=== PATIENT | male | born 1995 | race Caucasian/White ===

== ENCOUNTER 2023-02-17 13:24 | Emergency (ER) | payer OTHER, SELFPAY ==
--- NOTE | ~2023-02-17 | XR_ITS ---
EXAMINATION: XR CHEST CLINICAL INFORMATION: Lightheadedness COMPARISON: None available. TECHNIQUE: 2 views of the chest were obtained. FINDINGS: Hyperinflated lungs with a 8 to 9 mm nodule right lower lobe suspected. No acute pneumonic process seen. The heart size and pulmonary vascularity is normal. No gross bony abnormality seen. There is mild dextroscoliosis. No aggressive lytic or sclerotic process seen. XR/XR chest 2V IMPRESSION: 1. 8 to 9 mm nodule right lower lobe. Recommend CT chest exam. 2. No acute pneumonic process seen.
--- NOTE | ~2023-02-17 | CT_ITS ---
EXAMINATION: CT ABDOMEN AND PELVIS WITH CONTRAST CLINICAL INFORMATION: Night sweats. Weight loss. COMPARISON: None available. TECHNIQUE: Multidetector volumetric images were obtained from the superior aspect of the liver through the pubic symphysis following administration 85 mL of Omnipaque 350 intravenous contrast. Sagittal and coronal reformatted images were obtained on the technologist's workstation. Oral contrast: Yes This CT examination was performed using dose optimization techniques as appropriate, variously including the following: *Automated exposure control *Adjustment of mA and/or kV according to patient size (this includes techniques or standardized protocols for targeted exams where dose is matched to indication/reason for exam; i.e. extremities or head) *Use of iterative reconstruction technique DLP: 390 mGy-cm FINDINGS: LUNG BASES: The visualized lung bases are unremarkable. LIVER, GALLBLADDER, AND BILIARY TREE: The liver is normal in size, shape, and attenuation. No focal hepatic lesion or biliary ductal dilatation is present. The gallbladder is contracted. PANCREAS: Unremarkable. SPLEEN: Unremarkable. ADRENAL GLANDS: Unremarkable. KIDNEYS AND URETERS: The kidneys are normal in size, shape, and attenuation. Small 2 mm nonobstructing stone in the mid right kidney. BLADDER: Unremarkable. GASTROINTESTINAL TRACT: There is a slightly dilated fluid-filled loop of proximal small bowel with question focal wall thickening in the left mid abdomen for example axial image 40 series 9 and coronal reconstructed image 37. The small and large bowel are otherwise unremarkable. The appendix is unremarkable. The stomach is filled with food. No ascites. ABDOMINAL WALL: No significant hernia is appreciated. LYMPH NODES: Shotty small bowel mesentery lymphadenopathy. VASCULAR: Unremarkable. PELVIC VISCERA: Unremarkable. OSSEOUS STRUCTURES: Small nonspecific sclerotic lesions in the right iliac bone and L5 vertebrae. These may represent bone islands. CT/CT abdomen pelvis w IV con IMPRESSION: Question abnormal loop of proximal small bowel in left mid abdomen. Shotty small bowel mesentery lymphadenopathy. This could be better evaluated small bowel follow-through or CT or MR enterography exam. Small nonobstructing right renal stone. Fleischner guidelines were followed.
--- NOTE | ~2023-02-17 | CT_ITS ---
EXAMINATION: CT ANGIOGRAM OF THE CHEST WITH AND WITHOUT CONTRAST (CT PULMONARY ANGIOGRAM FOR PE) CLINICAL INFORMATION: Reason for Exam R sided pain, near syncope COMPARISON: Chest x-ray from earlier the same day. TECHNIQUE: Prior to contrast administration, noncontrast localization images were obtained. Subsequently, multidetector volumetric imaging was performed from the thoracic inlet to below the diaphragms following the administration of 85 mL Omnipaque 350 intravenous contrast. No contrast reaction reported Sagittal, coronal, and MIP oblique sagittal reformatted images were obtained on the CT workstation, uploaded to PACS, and reviewed. This CT examination was performed using dose optimization techniques as appropriate, variously including the following: *Automated exposure control *Adjustment of mA and/or kV according to patient size (this includes techniques or standardized protocols for targeted exams where dose is matched to indication/reason for exam; i.e. extremities or head) *Use of iterative reconstruction technique Total exam dose-length product 267 mGy-cm FINDINGS: QUALITY OF STUDY/CONTRAST BOLUS: Satisfactory. PULMONARY ARTERIES: No pulmonary emboli. THORACIC AORTA: No aneurysm. LUNG: No focal consolidation, nodules or masses. PLEURA: No pleural effusion or pneumothorax. MEDIASTINUM: Normal heart size. No pericardial effusion. No hilar or mediastinal lymphadenopathy. No evidence of septal bowing or right heart strain. CORONARY ARTERY CALCIFICATION: None visualized on this study. CHEST WALL/AXILLA: No axillary or internal mammary lymphadenopathy. OSSEOUS STRUCTURES: No acute or suspicious osseous abnormality. UPPER ABDOMEN: Unremarkable. No reflux of contrast into the hepatic veins to suggest elevated right heart pressures. CT/CT angio chest PE protocol IMPRESSION: No pulmonary embolism. VTE: negative
--- NOTE | 2023-02-17 13:42 | ED_ITS ---
HPI - General Adult General Chief complaint: General Medical Stated complaint: Lightheaded R Side Pain Etc Time Seen by Provider: 02/17/23 14:58 Source: patient Mode of arrival: ambulatory Limitations: no limitations History of Present Illness HPI narrative: 27 yo male with no PMH he is a smoker notes unexplained weight loss 20+ lbs in 3 months time, fatigue, night sweats. 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 He states since last night body aches, he was so weak he was dizzy and thinks he blacked out. He is eating but has nausea and early satiety. He notes he feels full a lot. He uses the bathroom a lot and at times has seen blood in his stool. No known fam hx of UC or Crohns. Today at work his vision went out again - no trauma he could hear people and he has this unexplained pain in RUQ area that bothers him at times. He denies travel, cough, exposures, IVDA, prison use, mcfp time. MD complaint: weight loss Onset (ago): month(s) (3) Location: abdomen Radiation: non-radiation Severity: mild Quality: aching Pain Consistency: intermittent Relieving factors: none Exacerbating factors: eating Associated symptoms: loss of appetite, malaise, syncope and weakness Treatments prior to arrival: none Related Data Previous Rx's Medication Instructions Recorded ondansetron 4 mg disintegrating 4 mg PO Q8H PRN nausea and 02/17/23 tablet vomiting #20 tabs prednisone 20 mg tablet 40 mg (2 x 20 mg) PO DAILY 5 days 02/17/23 #10 tabs Allergies Allergy/AdvReac Type Severity Reaction Status Date / Time alprazolam [From Xanax] Allergy Rash Verified 02/17/23 13:42 Review of Systems 2 Review of Systems: Constitutional : No Fever, No Chills, pos Fatigue, pos weight loss, pos night sweats ENT/Mouth : No sore throat, No Rhinorrhea Eyes: No Eye Pain, No Swelling, No Redness Cardiovascular : No Chest Pain, No SOB, No Dyspnea on Exertion Respiratory : No Cough, No Sputum Gastrointestinal : No Nausea, No Vomiting, No Diarrhea, No abdominal Pain Genitourinary : No Dysuria, No Urinary Frequency, No Hematuria, Musculoskeletal : No joint pain, No Myalgias, No Joint Swelling Skin : No Skin Lesions, No rash Neuro : No Weakness, No Numbness, No Dizziness, no Headache Psych : No Anxiety/Panic, No Depression Heme/Lymph: No Bruising, No Bleeding,No Lymphadenopathy Endocrine : No Polyuria, No Polydipsia All other systems reviewed and are negative [facility] Past Medical History Attestation statement: The following information was validated with the patient. Source: old records reviewed Medical History No pertinent past medical history Social History Social History (Updated 02/17/23 @ 15:52 by Pema Garcia DO) Patient Tobacco Use Status: Current everyday Tobacco user Advance Directives: No Advance Directives Information Provided: Yes Physical Exam ED Vital Signs: Vital Signs - 24 hr 02/17/23 13:43 Temperature 98.6 F Pulse Rate 71 Respiratory Rate 18 Blood Pressure 116/47 L Pulse Oximetry 99 Oxygen Delivery Method Room Air BMI result Body Mass Index 22.6 Appearance: Alert. Oriented X3. No acute distress. Eating food in exam room. Eyes: Pupils equal, round and reactive to light. ENT: Pharynx normal. Neck: Normal inspection. Neck supple. CVS: Normal heart rate and rhythm. Pulses normal. Respiratory: No respiratory distress. Breath sounds normal. Abdomen: Soft and non-tender. Skin: Skin warm and dry. pale skin color. Normal skin turgor. Extremities: No lower extremity edema. No calf ttp Neuro: Oriented X 3. No motor deficit. No sensory deficit. Course Course Course Narrative: RME performed by Peggy August PA-C. Patient is a 27 year old assigned male at presenting to the emergency department with lightheadedness and a syncopal episode at work. Labs and swabs ordered. Patient placed back in the waiting room pending room availability and results. Reevaluation(s) Reevaluation #1: stable for DC at this time eating no signs of SBO Medications Administered Discontinued Medications Generic Name Dose Route Start Last Admin Trade Name Freq PRN Reason Stop Dose Admin Sodium Chloride 1,000 mls @ 999 mls/hr 02/17/23 15:30 02/17/23 17:05 Ns IV 02/17/23 16:30 Infused .Q1H1M CHRISTIANA Infusion Iohexol 85 ml 02/17/23 17:15 02/17/23 17:16 Iohexol 350 Mg/Ml 100 Ml Infus..Btl IV 02/17/23 17:16 85 ml ONCE ONE Administration Medical Decision Making Medical Decision Making [facility] Narrative: 27 yo male with weight loss, night sweats now with weakness and syncope/near syncope - symptoms started 3 months ago now progressive - at this time concern for malignancy will obtain CT scan of chest and abdomen his CBC does not show any signs of leukemia. He denies risk factors such as IVDA, prison use, m[facility]p time for infectious issues like TB. He has not traveled. Will obtain labs, CT scans, EKG, hydrate. Differential Diagnosis Differential Diagnoses: The differential diagnosis associated with the presentation includes dehydration, malignancy Admission/Observation Consideration of admission/observation: Escalation of care including admission/observation considered can follow up with GI as outpatient given symptoms will start on steroid dwayne clinically not consistent with SBO Lab Data [facility] Lab Attestation statement: I reviewed the patient's lab results. 02/17/23 14:13 02/17/23 14:13 Labs: Lab Results 02/17/23 Range/Units 14:13 WBC 10.7 (4.8-10.8) X10*3/uL RBC 4.61 (4.60-5.80) X10*6/uL Hgb 14.1 (14.0-18.0) g/dl Hct 41.0 L (42.0-52.0) % MCV 88.9 (80.0-98.0) fL MCH 30.6 (27.0-33.0) pg MCHC 34.4 (31.0-36.0) g/dl RDW 13.2 (11.0-16.0) % Plt Count 229 (160-400) X10*3/uL MPV 9.9 (9.4-12.4) fL Immature Gran % (Auto) 0.4 (0.0-0.4) % Neut % (Auto) 75.8 H (45-73) % Lymph % (Auto) 18.7 L (20-40) % [place] % (Auto) 4.0 (2-11) % Eos % (Auto) 0.7 (0-4) % Baso % (Auto) 0.4 (0-2) % Lymph # (Auto) 2.0 (1.2-4.9) X10*3/uL [place] # (Auto) 0.4 (0.1-1.2) X10*3/uL Eos # (Auto) 0.1 (0.0-0.4) X10*3/uL Baso # (Auto) 0.0 (0.0-0.2) X10*3/uL Abs Immat Gran (auto) 0.04 H (0.00-0.03) X10*3/uL Absolute Neuts (auto) 8.1 (2.0-8.3) x10*3/uL Absolute Nucleated RBC 0.000 (0.0-0.012) X10*3/uL Nucleated RBC % (auto) 0.0 (0.0-0.2) /100WBC Sodium 140 (135-145) mmol/L Potassium 4.3 (3.3-5.1) mmol/L Chloride 106 (96-108) mmol/L Carbon Dioxide 28 (22-29) mmol/L Anion Gap 10 L (12-20) BUN 14 (9-16) mg/dL Creatinine 1.07 (0.5-1.4) mg/dL Estim Creat Clear Calc 102.8 Estimated GFR > 60 Random Glucose 108 (60-115) mg/dL Calcium 9.8 (8.4-10.2) mg/dL Magnesium 2.4 (1.6-2.6) mg/dL Total Bilirubin 0.5 (0.0-1.0) mg/dL AST 12 (5-37) U/L ALT 18 (0-40) U/L Alkaline Phosphatase 68 (39-117) U/L Troponin I High Sens < 2.7 (<3.5-35.0) ng/L Total Protein 7.7 (6.5-8.0) g/dL Albumin 4.6 (3.5-5.0) g/dL TSH 0.70 (0.32-4.0) uIU/mL Urine Color Yellow Urine Appearance Cloudy Urine pH 7.5 (5.0-9.0) Ur Specific [place] 1.015 (1.005-1.025) Urine Protein Negative (Neg-Trace) mg/dL Urine Glucose (UA) Negative (Negative) mg/dL Urine Ketones Negative (Negative) mg/dL Urine Blood Negative (Negative) Urine Nitrite Negative (Negative) Ur Leukocyte Esterase Negative (Negative) Influenza Type A (PCR) NEGATIVE (Negative) Influenza Type B (PCR) NEGATIVE (Negative) RSV RNA Qual (PCR) NEGATIVE (Negative) SARS-CoV-2 RNA (RT-PCR) NEGATIVE (Negative) Independent Interpretation I performed an independent interpretation of an: EKG, Plain X-Ray (lung nodule) and CT Scan Interpretation: Rate: 70 Rhythm: NSR [place]: normal Normal P waves. Normal DEANNE. Normal QRS complex. ST T wave : normal no TANYA qTC: normal prior studies: no acute ischemia The study has been interpreted contemporaneously by me. . Radiology Impression Discussion of test interpretation with radiology: I have reviewed the radiologist's reading. Independent Historian Clinical information obtained from an independent historian. History obtained from or confirmed by: Spouse Prescription Management I considered prescription management with: Other Discharge Plan Discharge Clinical Impression: Near syncope, Unexplained weight loss Diarrhea Qualifiers: Diarrhea type: unspecified type Qualified Code(s): R19.7 - Diarrhea, unspecified Patient Disposition: Home, Self-Care Instructions: Acute Diarrhea (ED), Near Syncope (ED) Additional Instructions: return for worsening symptoms, fevers, increased blood in stool, inability to eat or drink or any other concerns. I would talk to your doctor Monday and get referral to GI for colonoscopy please do not wait. normal heart tests, negative blood clot, negative covid,flu,rsv Prescriptions: New prednisone 20 mg tablet 40 mg PO DAILY 5 Days Qty: 10 0RF ondansetron 4 mg tablet,disintegrating 4 mg PO Q8H PRN (Reason: nausea and vomiting) Qty: 20 0RF Referrals: Allan Mcgee MD [Physician] - (next week call to schedule appointment) Stand Alone Forms: Work/School Release
[2023-02-17 13:43] VITALS: BP 116/47; PULSE 71; RESP 18; TEMP 37; O2SAT 99; BMI 22.6
--- NOTE | 2023-02-17 13:43 | ECG_ITS ---
Test Reason : lighthead Blood Pressure : / mmHG Vent. Rate : 070 BPM Atrial Rate : 070 BPM P-R Int : 122 ms QRS Dur : 078 ms QT Int : 390 ms P-R-T Axes : 028 062 061 degrees QTc Int : 421 ms Normal sinus rhythm Normal ECG No previous ECGs available Referred By: Peggy August Electronically Signed By:Telly Roman
[2023-02-17 14:19] LABS: MANUAL DIFF FLAG NO
[2023-02-17 14:20] LABS: Basophils Percent Auto 0.4 % (0-2); Eosinophils Absolute Auto 0.1 X10*3/uL (0.0-0.4); Eosinophils Percent Auto 0.7 % (0-4); Hemoglobin 14.1 g/dl (14.0-18.0); Imm Gran Abs Auto 0.04 X10*3/uL (0.00-0.03); Imm Gran Pct Auto 0.4 % (0.0-0.4); Lymphocytes Percent Auto 18.7 % (20-40); Mean Corpuscular HGB Conc 34.4 g/dl (31.0-36.0); Mean Corpuscular Hemoglobin 30.6 pg (27.0-33.0); Mean Corpuscular Volume 88.9 fL (80.0-98.0); Mean Platelet Volume 9.9 fL (9.4-12.4); Monocytes Absolute Auto 0.4 X10*3/uL (0.1-1.2); Neutrophils Absolute Auto 8.1 x10*3/uL (2.0-8.3); Neutrophils Percent Auto 75.8 % (45-73); Platelet Count 229 X10*3/uL (160-400); Red Blood Count 4.61 X10*6/uL (4.60-5.80); Red Cell Distribution Width 13.2 % (11.0-16.0); White Blood Count 10.7 X10*3/uL (4.8-10.8)
[2023-02-17 14:22] LABS: Appearance Urine Cloudy; Color Urine Yellow; Glucose Urine UA Negative (Negative); Leukocyte Esterase Urine Negative (Negative); Nitrite Urine Negative (Negative); PH 7.5 (5.0-9.0); Specific Gravity - Urine 1.015 (1.005-1.025); Urine Blood Negative (Negative); Urine Ketones Negative (Negative); Urine Protein Negative (Neg-Trace)
[2023-02-17 14:35] LABS: Alanine Aminotransferase 18 U/L (0-40); Albumin Level 4.6 g/dL (3.5-5.0); Alkaline Phosphatase 68 U/L (39-117); Anion Gap 10 (12-20); Aspartate Amino Transferase 12 U/L (5-37); Bilirubin Total 0.5 mg/dL (0.0-1.0); Blood Urea Nitrogen 14 mg/dL (9-16); Calcium 9.8 mg/dL (8.4-10.2); Carbon Dioxide 28 mmol/L (22-29); Chloride 106 mmol/L (96-108); Creatinine Clr Calc Pharmacy 102.8; Estimated Glomerular Filt Rate > 60; Glucose Random 108 mg/dL (60-115); Magnesium 2.4 mg/dL (1.6-2.6); Potassium 4.3 mmol/L (3.3-5.1); Sodium 140 mmol/L (135-145); Total Protein 7.7 g/dL (6.5-8.0)
[2023-02-17 14:42] LABS: Troponin-I High Sensitivity < 2.7 ng/L (<3.5-35.0)
[2023-02-17 15:27] LABS: Influenza A PCR NEGATIVE (Negative); Influenza B PCR NEGATIVE (Negative); Resp Syncy Virus RNA Qual PCR NEGATIVE (Negative); SARS COV2 PCR INHOUSE NEGATIVE (Negative)
[2023-02-17] MEDS: 0.9 % Sodium Chloride 1,000 ML 999 ML IV (16:04)
[2023-02-17] MEDS: iohexoL 350 MG/ML 100 ML INFUS..BTL 85 ML IV (17:16)
--- NOTE | 2023-02-17 19:06 | PC.NURSE ---
care assumed of patient at this time.
== END 2023-02-17 19:23 | disposition home or self-care (01) ==
PROVIDERS: Physician Assistant Medical; Emergency Provider Emergency Medicine
DX: R55 Syncope and collapse (principal); R10.2 Pelvic and perineal pain; R61 Generalized hyperhidrosis; R10.11 Right upper quadrant pain; R11.2 Nausea with vomiting, unspecified; Z20.822 Contact with and (suspected) exposure to COVID-19; Z20.828 Contact with and (suspected) exposure to other viral communicable diseases; Z79.899 Other long term (current) drug therapy
CPT/HCPCS: 0241U; 71046; 71275; 74177; 80053; 81003; 83735; 84443; 84484; 85025; 93005; 96360; 99284; Q9967

== ENCOUNTER → 2023-02-17 13:43 | Outpatient (BNV) | payer OTHER, SELFPAY | PROVIDERS: Emergency Provider Emergency Medicine; Visit Provider Internal Medicine Cardiovascular Disease | DX: R42 Dizziness and giddiness (principal) | CPT/HCPCS: 93010 ==

== ENCOUNTER 2023-05-13 11:17 | Emergency (ER) | payer OTHER, SELFPAY ==
--- NOTE | 2023-05-13 11:34 | ED.GENADULT ---
HPI - General Adult General Chief complaint: Upper Respiratory Symptoms Stated complaint: Headache, body aches, fever Time Seen by Provider: 05/13/23 12:37 Source: patient Mode of arrival: ambulatory Limitations: no limitations History of Present Illness HPI narrative: Patient is a 27-year-old male presenting to the emergency department with complaint of headache, body aches, fever/chills x 2 days. States both daughters are sick with the flu. Denies chest pain, palpitations, dyspnea. Denies abdominal pain, nausea, vomiting, diarrhea. MD complaint: body aches, fever Onset (ago): day(s) Quality: aching Pain Consistency: constant Associated symptoms: fever/chills and headaches Treatments prior to arrival: none Related Data Previous Rx's Medication Instructions Recorded ondansetron 4 mg disintegrating 4 mg PO Q8H PRN nausea and 02/17/23 tablet vomiting #20 tabs prednisone 20 mg tablet 40 mg (2 x 20 mg) PO DAILY 5 days 02/17/23 #10 tabs oseltamivir 75 mg capsule 75 mg PO BID 5 days #10 caps 05/13/23 Allergies Allergy/AdvReac Type Severity Reaction Status Date / Time alprazolam [From Xanax] Allergy Rash Verified 05/13/23 11:37 Review of Systems Review of Systems: As per HPI. Yes all other systems are reviewed and are negative Constitutional: Constitutional: Reports as per HPI [facility] Past Medical History Medical History No pertinent past medical history Social History Social History (Updated 02/17/23 @ 15:52 by Pema Garcia DO) Patient Tobacco Use Status: Current everyday Tobacco user Physical Exam ED Vital Signs: Vital Signs - 24 hr 05/13/23 11:37 Temperature 98.0 F Pulse Rate 81 Respiratory Rate 16 Blood Pressure 110/48 L Pulse Oximetry 98 Oxygen Delivery Method Room Air BMI result Body Mass Index 25.8 Vital signs have been reviewed and appear to be correct. Blood pressure normal. Heart rate normal. Respiratory rate normal. Temperature normal. Oxygen saturation normal. Const General: cooperative, healthy appearing and no acute distress Orientation/consciousness: oriented to person, oriented to place, oriented to time and patient oriented x3 Limitations: no limitations HENMT Head: Yes normocephalic and Yes atraumatic Ears: external ears normal General nose exam: Normal external nose present Face and sinus: Yes face symmetric Mouth: oropharynx normal and moist mucous membranes Throat: Yes uvula midline Eyes Pupils: Equal, round and reactive pupils present Neck Neck: Yes normal visual inspection and Yes supple Resp Effort & Inspection: normal respiratory effort and able to speak in complete sentences Auscultation: clear to auscultation bilaterally Cardio Rate: regular rate Rhythm: regular rhythm Heart sounds: S1 normal heart sound present and S2 normal heart sound present GI Palpation (GI): Soft to palpation and nontender Auscultation: normoactive bowel sounds General: Yes no CVA tenderness Back/Spine/Pelvis Back: no CVA tenderness Skin General skin exam: elasticity normal and turgor normal Neuro General: oriented to person, oriented to place, oriented to time, patient oriented x3, moves all extremities, no focal motor deficits and CN's II-XI intact bilaterally Cranial nerves: Yes Equal, round and reactive pupils present Cognition (Neuro): normal cognition Extrem General: Yes full ROM, Yes no pedal edema and Yes no calf tenderness Psych Mental Status: mental status grossly normal Affect: normal affect Thought process: Normal thought process present Medical Decision Making Medical Decision Making [facility] Narrative: Patient is a 27-year-old male presenting to the emergency department with complaint of headache, body aches, fever/chills x 2 days. On exam patient is awake, A+Ox3, VS WNL, afebrile, normal neurological exam without focal deficits, physical exam findings as above. Given reported symptoms and physical exam findings, initial differential includes viral illness, covid, flu, rsv. Swab positive for influenza A, patient updated on results. Discussed treatment with Tamiflu with patient, which he is agreeable to, prescription sent. Patient denies any history of renal issues. Return precautions discussed, instructed patient to follow-up with primary care provider. Patient verbalized understanding of and agreement with plan Differential Diagnosis Differential Diagnoses: The differential diagnosis associated with the presentation includes As per MDM. Lab Data [facility] Lab Attestation statement: I reviewed the patient's lab results. As per MDM. Labs: Lab Results 05/13/23 05/13/23 Range/Units 11:49 11:50 Influenza Type A (PCR) POSITIVE A (Negative) Influenza Type B (PCR) NEGATIVE (Negative) RSV RNA Qual (PCR) NEGATIVE (Negative) SARS-CoV-2 RNA (RT-PCR) NEGATIVE (Negative) S. pyogenes GrpA ADITYA Negative (Negative) External Record Review External record reviewed: Inpatient record, Office record and Outpatient record Prescription Management I considered prescription management with: Antiviral Discharge Plan Discharge Clinical Impression: Influenza Patient Disposition: Home, Self-Care Instructions: Influenza (DC), Flu Shot (Vaccine) for Adults (ED) Additional Instructions: You were evaluated in the emergency department today for headaches, body aches, fever. Your flu test was positive. You should isolate at home for another 4 days and continue to wear mask or symptomatic after that. You are being treatment with Tamiflu which can decrease the length and severity of your symptoms, but can cause nausea and vomiting. Your symptoms should resolve over time with rest and fluids. You can take 650 mg Tylenol or 600 mg ibuprofen every 6 hours as needed for fever or pain. Please follow-up with your primary care provider for any ongoing symptoms. Return to the emergency department if you develop worsening pain, fever not controlled with Tylenol and ibuprofen, chest pain, dizziness or lightheadedness, or any other concerning symptoms. Prescriptions: New oseltamivir 75 mg capsule 75 mg PO BID 5 Days Qty: 10 0RF No Action prednisone 20 mg tablet 40 mg PO DAILY 5 Days Qty: 10 0RF ondansetron 4 mg tablet,disintegrating 4 mg PO Q8H PRN (Reason: nausea and vomiting) Qty: 20 0RF Stand Alone Forms: Work/School Release
[2023-05-13 11:37] VITALS: BP 110/48; PULSE 81; RESP 16; TEMP 36.7; O2SAT 98; BMI 25.8
[2023-05-13 12:18] LABS: IDNOW Serial# 6674DD1D; Strep A Nucleic Acid Negative (Negative)
[2023-05-13 12:34] LABS: Influenza A PCR POSITIVE (Negative); Influenza B PCR NEGATIVE (Negative); Resp Syncy Virus RNA Qual PCR NEGATIVE (Negative); SARS COV2 PCR INHOUSE NEGATIVE (Negative)
== END 2023-05-13 12:47 | disposition home or self-care (01) ==
LOC: HO.ED 12:45
PROVIDERS: Registered Nurse Emergency; Emergency Provider Student in an Organized Health Care Education/Training Program
DX: J10.1 Influenza due to other identified influenza virus with other respiratory manifestations (principal); R51.9 Headache, unspecified; R50.9 Fever, unspecified
CPT/HCPCS: 0241U; 87651; 99281; 99283

== ENCOUNTER 2023-05-13 22:26 | Emergency (ER) | payer OTHER, SELFPAY ==
[2023-05-13 22:29] VITALS: BP 110/63; PULSE 85; RESP 20; TEMP 37.7; O2SAT 99; BMI 21.4
[2023-05-13 22:49] LABS: MANUAL DIFF FLAG NO
[2023-05-13 22:50] LABS: Basophils Absolute Auto 0.1 X10*3/uL (0.0-0.2); Basophils Percent Auto 0.7 % (0-2); Eosinophils Percent Auto 0.1 % (0-4); Hemoglobin 13.8 g/dl (14.0-18.0); Imm Gran Abs Auto 0.02 X10*3/uL (0.00-0.03); Imm Gran Pct Auto 0.3 % (0.0-0.4); Lymphocytes Absolute Auto 0.8 X10*3/uL (1.2-4.9); Mean Corpuscular HGB Conc 35.4 g/dl (31.0-36.0); Mean Corpuscular Hemoglobin 30.9 pg (27.0-33.0); Mean Corpuscular Volume 87.4 fL (80.0-98.0); Monocytes Absolute Auto 0.9 X10*3/uL (0.1-1.2); Monocytes Percent Auto 12.5 % (2-11); Neutrophils Absolute Auto 5.3 x10*3/uL (2.0-8.3); Neutrophils Percent Auto 75.4 % (45-73); Platelet Count 177 X10*3/uL (160-400); Red Blood Count 4.46 X10*6/uL (4.60-5.80); Red Cell Distribution Width 13.2 % (11.0-16.0); White Blood Count 7.1 X10*3/uL (4.8-10.8)
[2023-05-13 23:02] LABS: Alanine Aminotransferase 19 U/L (0-40); Albumin Level 4.5 g/dL (3.5-5.0); Alkaline Phosphatase 65 U/L (39-117); Anion Gap 12 (12-20); Aspartate Amino Transferase 16 U/L (5-37); Bilirubin Total 0.4 mg/dL (0.0-1.0); Blood Urea Nitrogen 12 mg/dL (9-16); Calcium 9.6 mg/dL (8.4-10.2); Carbon Dioxide 27 mmol/L (22-29); Chloride 103 mmol/L (96-108); Estimated Glomerular Filt Rate > 60; Glucose Random 117 mg/dL (60-115); Potassium 3.5 mmol/L (3.3-5.1); Sodium 138 mmol/L (135-145); Total Protein 7.5 g/dL (6.5-8.0)
[2023-05-13 23:17] LABS: Appearance Urine Clear; Color Urine Yellow; Glucose Urine UA Negative (Negative); Leukocyte Esterase Urine Negative (Negative); Nitrite Urine Negative (Negative); UMIC TRIGGER UACC YES; Urine Blood Moderate (2+) (Negative); Urine Ketones Trace mg/dL (Negative); Urine Protein Trace mg/dL (Neg-Trace)
[2023-05-13 23:21] LABS: Ethanol < 10 mg/dL
[2023-05-13 23:22] LABS: Bacteria Urine None Seen (None Seen); Hyaline Casts Urine 0-2 /LPF (0-2); RBC Urine >20 /HPF (0-2); Squamous Epithelial Cell Urine 0-2 /HPF (0-2); WBC Urine 0-5 /HPF (0-5)
[2023-05-13 23:25] LABS: Amphetamine Screen Urine Not Detected (Not Detect); Barbiturates, Urine Not Detected (Not Detect); Benzodiazepines Screen Urine Not Detected (Not Detect); Cannabinoid Screen Urine POSITIVE (Not Detect); Cocaine Screen Urine Not Detected (Not Detect); Fentanyl, urine POSITIVE (Not Detect); Opiate Screen Urine Not Detected (Not Detect); Phencyclidine Screen Urine Not Detected (Not Detect)
--- NOTE | 2023-05-13 23:46 | ED_ITS ---
HPI - Psych General Chief Complaint: Psychiatric Symptoms Stated Complaint: SI Time Seen by Provider: 05/13/23 23:17 Source: patient Mode of arrival: ambulatory Limitations: no limitations History of Present Illness HPI Narrative: 27-year-old male came in for evaluation of SI. Patient was seen earlier in the emergency department and diagnosed with influenza knee positive, patient return for depression feeling, SI with plan to crash his car into something or overdose on pills, patient admit to use street drugs for the past 8 months used 1 pill of Percocet before coming to the hospital. Patient stated that life is stressful with problem with his significant other and also financial problem. Patient also is seeking help of detox from Percocet. Related Data Home Medications Medication Instructions Recorded Confirmed clonidine HCl 0.1 mg tablet 0.1 mg PO BEDTIME 05/14/23 05/14/23 Previous Rx's Medication Instructions Recorded ondansetron 4 mg disintegrating 4 mg PO Q8H PRN nausea and 02/17/23 tablet vomiting #20 tabs prednisone 20 mg tablet 40 mg (2 x 20 mg) PO DAILY 5 days 02/17/23 #10 tabs oseltamivir 75 mg capsule 75 mg PO BID 5 days #10 caps 05/13/23 Allergies Allergy/AdvReac Type Severity Reaction Status Date / Time alprazolam [From Xanax] Allergy Rash Verified 05/13/23 22:29 Review of Systems 2 Review of Systems: All other systems are reviewed and are negative Constitutional: Reports as per HPI and Reports no additional constitutional complaints Eyes: Reports as per HPI and Reports no additional eye complaints Reports system reviewed and no additional complaints, except as documented Cardiovascular: Reports as per HPI and Reports no additional cardiovascular complaints Respiratory: Reports as per HPI and Reports no additional respiratory complaints Gastrointestinal: Reports as per HPI and Reports no additional gastrointestinal complaints Genitourinary: Reports no additional female genitourinary complaints Musculoskeletal: Reports no additional musculoskeletal complaints Skin/Breast: Reports system reviewed and no additional complaints, except as docu Psychiatric: Reports no additional psychiatric complaints Endocrine: Reports no additional endocrine complaints Hematologic/Lymphatic: Reports no additional hematologic/lymphatic complaints Allergic/Immunologic: Reports no additional allergic/immunologic complaints Reports system reviewed and no additional complaints, except as documented and Reports Abnormal speech present [facility] Past Medical History Medical History No pertinent past medical history Social History Social History Patient Tobacco Use Status: Current everyday Tobacco user Smoked in Last 30 Days: No Use of substances other than those prescribed or required for medical reasons: Yes Substance Use Type: Opiates and Painkillers Advance Directives: No Advance Directives Information Provided: No Physical Exam 2 Vital Signs: Vital Signs: Last Vital Signs Temp 99.8 F 05/13/23 22:29 Pulse 85 05/13/23 22:29 Resp 20 05/13/23 22:29 BP 110/63 05/13/23 22:29 Pulse Ox 99 05/13/23 22:29 O2 Del Method Room Air 05/13/23 22:29 BMI result Body Mass Index 21.4 Vital signs have been reviewed and appear to be correct. Blood pressure elevated. Heart rate normal. Respiratory rate normal. Temperature normal. Oxygen saturation normal. Appearance: Alert. Oriented X3. No acute distress. Head: Normal external exam. Normocephalic. Atraumatic. No Bowman signs noted. No raccoon eyes noted Eyes: PERRLA. EOMI. Conjunctiva and sclera normal. Eyelids normal. ENT: TM's Normal. Pharynx normal. Uvula midline. Moist mucous membranes. No trismus noted. No drooling noted. No muffled voice noted. Neck: Normal inspection. Neck supple. FROM. No adenopathy. Thyroid Normal. No meningeal signs. No neck mass noted. CVS: Normal heart rate and rhythm. Heart sound normal. No murmurs noted. Pulses normal throughout. Respiratory: No respiratory distress. Painless inspiration. Breath sounds normal. No wheezes/rales/rhonchi noted. Chest nontender. No accessory muscle usage noted or decreased air movement noted. Abdomen: Soft and nontender. Bowel sounds normal in all 4 quadrants. No distention noted. No organomegaly noted. No visible injury noted. Back: No CVA tenderness. Full range of motion noted. Skin: Skin warm and dry. Normal skin color. Normal skin turgor. No rashes/lesions/lacerations noted. Extremities: No lower extremity edema. Extremities exhibit normal range of motion. Extremities nontender. Neuro: Oriented X 3. Cranial nerve exam: II-XII are grossly intact No motor deficit. No sensory deficit. Reflexes normal. Patient Orientation: Person, Place, Time and Situation, okay hygiene and grooming. Fair eye contact, attentive, no tics or tremors. Level of Consciousness: Awake, Appropriate and Alert Patient Behavior: Appropriate, Guarded, Cooperative and Anxious Mood Description: Constricted, Blunted and Apprehensive Affect Description: Constricted, Blunted and Apprehensive Patient Cognition Impaired: No Ability to Follow Directions: Excellent Speech Pattern: Clear, Appropriate and Spontaneous Speech, nonpressured, spontaneous with regular rate and rhythm, normal volume and prosody. No dysarthria. Memory Description: Intact, Immediate Intact and Short Term Intact Hallucinations: None Delusions: Not Present Thought Process: Intact Thought Content: positive for Intact, positive for Logical, admit to SI with plan of crashing his car or overdose on street drugs. denies Homicidal Ideation. Depressive Symptoms: Not present. Judgement and Insight: Limited but adequate. Course Reevaluation(s) Reevaluation #1: Here for depression/SI and substance abuse will start physician observation await for care team evaluation and disposition. Time: 23:50 Reevaluation #2: Seen and evaluated by care team the plan is bed search. Time: 03:22 Medications Administered Generic Name Dose Route Start Last Admin Trade Name Freq PRN Reason Stop Dose Admin Clonidine HCl 0.1 mg 05/14/23 01:15 05/14/23 01:20 Clonidine Hcl 0.1 Mg Tablet PO 0.1 mg BEDTIME CHRISTIANA Administration Protocol Medical Decision Making Differential Diagnosis Differential Diagnoses: The differential diagnosis associated with the presentation includes (Depression, SI, substance abuse, UTI, electrolyte abnormality, severe anemia, medical clearance.) Admission/Observation Consideration of admission/observation: Escalation of care including admission/observation considered Lab Data [facility] Lab Attestation statement: I reviewed the patient's lab results. 05/13/23 22:42 05/13/23 22:42 Labs: Lab Results 05/13/23 05/13/23 Range/Units 22:42 23:06 WBC 7.1 (4.8-10.8) X10*3/uL RBC 4.46 L (4.60-5.80) X10*6/uL Hgb 13.8 L (14.0-18.0) g/dl Hct 39.0 L (42.0-52.0) % MCV 87.4 (80.0-98.0) fL MCH 30.9 (27.0-33.0) pg MCHC 35.4 (31.0-36.0) g/dl RDW 13.2 (11.0-16.0) % Plt Count 177 (160-400) X10*3/uL MPV 10.0 (9.4-12.4) fL Immature Gran % (Auto) 0.3 (0.0-0.4) % Neut % (Auto) 75.4 H (45-73) % Lymph % (Auto) 11.0 L (20-40) % [place] % (Auto) 12.5 H (2-11) % Eos % (Auto) 0.1 (0-4) % Baso % (Auto) 0.7 (0-2) % Lymph # (Auto) 0.8 L (1.2-4.9) X10*3/uL [place] # (Auto) 0.9 (0.1-1.2) X10*3/uL Eos # (Auto) 0.0 (0.0-0.4) X10*3/uL Baso # (Auto) 0.1 (0.0-0.2) X10*3/uL Abs Immat Gran (auto) 0.02 (0.00-0.03) X10*3/uL Absolute Neuts (auto) 5.3 (2.0-8.3) x10*3/uL Absolute Nucleated RBC 0.000 (0.0-0.012) X10*3/uL Nucleated RBC % (auto) 0.0 (0.0-0.2) /100WBC Sodium 138 (135-145) mmol/L Potassium 3.5 (3.3-5.1) mmol/L Chloride 103 (96-108) mmol/L Carbon Dioxide 27 (22-29) mmol/L Anion Gap 12 (12-20) BUN 12 (9-16) mg/dL Creatinine 1.01 (0.5-1.4) mg/dL Estim Creat Clear Calc 106.0 Estimated GFR > 60 Random Glucose 117 H (60-115) mg/dL Calcium 9.6 (8.4-10.2) mg/dL Total Bilirubin 0.4 (0.0-1.0) mg/dL AST 16 (5-37) U/L ALT 19 (0-40) U/L Alkaline Phosphatase 65 (39-117) U/L Total Protein 7.5 (6.5-8.0) g/dL Albumin 4.5 (3.5-5.0) g/dL Urine Color Yellow Urine Appearance Clear Urine pH 6.0 (5.0-9.0) Ur Specific [place] 1.020 (1.005-1.025) Urine Protein Trace (Neg-Trace) mg/dL Urine Glucose (UA) Negative (Negative) mg/dL Urine Ketones Trace (Negative) mg/dL Urine Blood Moderate (2+) H (Negative) Urine Nitrite Negative (Negative) Ur Leukocyte Esterase Negative (Negative) Urine RBC >20 H (0-2) /HPF Urine WBC 0-5 (0-5) /HPF Ur Squamous Epith Cells 0-2 (0-2) /HPF Urine Bacteria None Seen (None Seen) Hyaline Casts 0-2 (0-2) /LPF Urine Opiates Screen Not Detected (Not Detect) Urine Fentanyl Screen POSITIVE H (Not Detect) Ur Barbiturates Screen Not Detected (Not Detect) Ur Phencyclidine Scrn Not Detected (Not Detect) Ur Amphetamines Screen Not Detected (Not Detect) U Benzodiazepines Scrn Not Detected (Not Detect) Urine Cocaine Screen Not Detected (Not Detect) U Marijuana (THC) Screen POSITIVE H (Not Detect) Ethyl Alcohol < 10 mg/dL Chronic Conditions Patient?s care impacted by: Other (Substance abuse.) Discharge Plan Discharge Clinical Impression: Suicidal ideation, Depression Patient Disposition: Still a Patient Prescriptions: No Action clonidine HCl 0.1 mg tablet 0.1 mg PO BEDTIME prednisone 20 mg tablet 40 mg PO DAILY 5 Days Qty: 10 0RF ondansetron 4 mg tablet,disintegrating 4 mg PO Q8H PRN (Reason: nausea and vomiting) Qty: 20 0RF oseltamivir 75 mg capsule 75 mg PO BID 5 Days Qty: 10 0RF Interventions: [place]-Suicide Risk Severity Scale Last Done: 05/14/23 00:58
[2023-05-14] MEDS: cloNIDine HCL 0.1 MG TABLET PO ×2 (01:20→20:51)
[2023-05-14 05:57] VITALS: BP 108/61; PULSE 73; RESP 17; TEMP 38; O2SAT 98
--- NOTE | 2023-05-14 06:17 | PC.NURSE ---
Pt arrived from triage. Labs completed in triage. PT changed over, urine obtained, belongings secured by security. PT oriented to the unit. Med rec completed. Pt endoring SI thoughts to crash car. States he recently had argument with girlfriend, and has not been himself lately. states he uses 1 perocet a day and has felt overwhelmed with life- all he is does is work and go home to care for his young children 1 and 5. Girlfriend works overnight. PT states he is interested in detox. Care team eval pending. plan of care ongoing
[2023-05-14] MEDS: Acetaminophen 325 MG TABLET 650 MG PO ×2 (06:35→20:51)
--- NOTE | 2023-05-14 07:30 | PC.NURSE ---
Assumed care of patient at 0650, patient appears to be sleeping, respirations even and unlabored, no apparent distress noted. Patient is flu+. Plan for inpatient bedsearch at this time
--- NOTE | 2023-05-14 12:47 | PC.NURSE ---
Patient spoke with mother on the phone, appeared to be in good mood, smiling occasionally. Pt is now back in his room sleeping, respirations even and unlabored, no apparent distress noted
[2023-05-14 14:44] VITALS: BP 116/69; PULSE 69; RESP 16; TEMP 37; O2SAT 97
[2023-05-14] MEDS: Ibuprofen 600 MG TABLET PO (15:51)
--- NOTE | 2023-05-14 19:19 | PC.NURSE ---
patient appears to remain at rest at present respirations are even and unlabored patient appears in no distress.
[2023-05-14 20:30] VITALS: BP 102/64; PULSE 61; RESP 18; TEMP 36.9; O2SAT 99
[2023-05-14] MEDS: diphenhydrAMINE HCL 25 MG CAPSULE 50 MG PO (20:51)
[2023-05-15] MEDS: LORazepam 1 MG TABLET 2 MG PO (00:29)
--- NOTE | 2023-05-15 03:55 | PC.NURSE ---
patient still appears restless in the bed, client may be having opiate wd sx, asking provider for muscle relaxer to address symptoms.
[2023-05-15] MEDS: Cyclobenzaprine HCl 10 MG TABLET PO (05:09)
[2023-05-15 06:34] VITALS: BP 104/63; PULSE 62; RESP 17; TEMP 36.8; O2SAT 100
--- NOTE | 2023-05-15 07:00 | PC.NURSE ---
Assumed care of patient at 0645, patient appears to be sleeping, respirations even and unlabored, no apparent distress noted. Continue plan of care for Sec 12, inpt bedsearch
[2023-05-15 08:53] LABS: COVID-19 Test Negative (Negative); IDNOW Serial# 152EDE1D
[2023-05-15 08:56] LABS: IDNOW Serial# 08D9AD1C; Influenza A Positive (Negative); Influenza B2 Negative (Negative)
[2023-05-15] MEDS: Nicotine 21 MG PATCH.TD24 TRANSDERMA (10:21)
[2023-05-15 10:25] VITALS: PULSE 74
--- NOTE | 2023-05-15 10:39 | PC.NURSE ---
CARE team met with patient and felt like patient may be withdrawing. This RN completed COWS score (9). Sql Ssis Developer aware
--- NOTE | 2023-05-15 12:11 | HO.ADDICT_ITS ---
History of Present Illness Date of Service: 05/15/2023 Chief Complaint: SI Sources of Information: patient interviewed and chart reviewed HPI Narrative: Patient is a 27 year old male currently in area of ED awaiting placement for worsening depression and suicidal ideation. He reported to team in ED that he has been taking Percocet for some time and has recently been taking pressed pills. Patient seen in ED [facility]-Awake, alert, engaged in interview. He reports he started taking prescribed percocet from a friend approx one year ago. He identified intrusive thoughts, sadness, and inability to stop my mind from thinking so much as the main reason for taking these pills. He reports they worked fast and allowed him to sleep and not have to think. Prior to this last year, he does acknowledge that he used percocet on occasion, but never daily. He states that he had been taking 1 30mg percocet every night before bed, until this summer when his friend, who was providing the medication, was no longer getting prescriptions. He then started to buy percocet from someone else, and on once occasion sounds like he may have experienced what he felt was a near overdose. He saw his PCP and learned about fentanyl and PCP provided him with testing strips. He reports testing his pills and found that they were in fact fentanyl, and he continued to take them. He takes pills by mouth. He has never used IN or IV. He denies any other substance use, aside from marijuana, and does not drink alcohol. Reports going 4 days once with no pressed pills, however did return to using. Unclear family history of substance use. He lives with his GF and 2 children ages 2 and 5 yo. Very tearful when speaking of his family and his desire to be in a better space mentally for them He reports weight loss, anhedonia, low motivation, relationship stressors. Discussed OUD and risk of overdose with ongoing use Discussed fenantyl and how it is different from the prescribed percocet he was previously taking He report mild withdrawal sx, restlessness mainly, as well as mild back pain. He is also Flu+ at this time. Flexeril administered earlier this morning which he reports was very helpful for his restlessness. Reviewed medications for OUD, in particular buprenorphine. Provided verbal education Patient at this time unsure what he wants to do regarding MOUD. Diagnostics Vital Signs (24Hr): Vital Signs - 24 hr 05/14/23 14:44 05/14/23 20:30 05/15/23 06:34 Temperature 98.6 F 98.4 F 98.2 F Pulse Rate 69 61 62 Respiratory Rate 16 18 17 Blood Pressure 116/69 102/64 104/63 Pulse Oximetry 97 99 100 Oxygen Delivery Method Room Air Room Air Room Air BMI result Body Mass Index 21.4 Labs 05/13/23 22:42 05/13/23 22:42 Labs: Laboratory Results - last 48 hr 05/13/23 05/13/23 05/15/23 22:42 23:06 08:34 WBC 7.1 RBC 4.46 L Hgb 13.8 L Hct 39.0 L MCV 87.4 MCH 30.9 MCHC 35.4 RDW 13.2 Plt Count 177 MPV 10.0 Immature Gran % (Auto) 0.3 Neut % (Auto) 75.4 H Lymph % (Auto) 11.0 L [place] % (Auto) 12.5 H Eos % (Auto) 0.1 Baso % (Auto) 0.7 Lymph # (Auto) 0.8 L [place] # (Auto) 0.9 Eos # (Auto) 0.0 Baso # (Auto) 0.1 Abs Immat Gran (auto) 0.02 Absolute Neuts (auto) 5.3 Absolute Nucleated RBC 0.000 Nucleated RBC % (auto) 0.0 Sodium 138 Potassium 3.5 Chloride 103 Carbon Dioxide 27 Anion Gap 12 BUN 12 Creatinine 1.01 Estim Creat Clear Calc 106.0 Estimated GFR > 60 Random Glucose 117 H Calcium 9.6 Total Bilirubin 0.4 AST 16 ALT 19 Alkaline Phosphatase 65 Total Protein 7.5 Albumin 4.5 Urine Color Yellow Urine Appearance Clear Urine pH 6.0 Ur Specific [place] 1.020 Urine Protein Trace Urine Glucose (UA) Negative Urine Ketones Trace Urine Blood Moderate (2+) H Urine Nitrite Negative Ur Leukocyte Esterase Negative Urine RBC >20 H Urine WBC 0-5 Ur Squamous Epith Cells 0-2 Urine Bacteria None Seen Hyaline Casts 0-2 Urine Opiates Screen Not Detected Urine Fentanyl Screen POSITIVE H Ur Barbiturates Screen Not Detected Ur Phencyclidine Scrn Not Detected Ur Amphetamines Screen Not Detected U Benzodiazepines Scrn Not Detected Urine Cocaine Screen Not Detected U Marijuana (THC) Screen POSITIVE H Ethyl Alcohol < 10 COVID-19 (RADHA) Negative COVID-19 Clin Com See Note Influenza Type A (ADITYA) Positive A Influenza Type B (ADITYA) Negative Influenza A & B Note See Note Medications Medications Current Medications Clonidine HCl (Clonidine Hcl 0.1 Mg Tablet) 0.1 mg PO BEDTIME CHRISTIANA; Protocol Last Admin: 05/14/23 20:51 Dose: 0.1 mg Allergies Allergies Allergy/AdvReac Type Severity Reaction Status Date / Time alprazolam [From Xanax] Allergy Rash Verified 05/13/23 22:29 Assessment & Plan Assessment & Plan (1) Opioid use disorder, mild, abuse: Status: Acute Code(s): F11.10 - Opioid abuse, uncomplicated Assessment and Plan: * flexeril TID PRN for restlessness * provided written information on OUD and medications for OUD * will check back in tomorrow with patient Total time managing care of this patient today ____ minutes. PMFSH Past Medical History Medical History No pertinent past medical history Social History Social History Patient Tobacco Use Status: Current everyday Tobacco user Smoked in Last 30 Days: No Use of substances other than those prescribed or required for medical reasons: Yes Substance Use Type: Opiates and Painkillers Advance Directives: No Advance Directives Information Provided: No
--- NOTE | 2023-05-15 15:45 | PM.PSYCN ---
History of Present Illness Date of Service: 05/16/2023 Chief Complaint: SI Reason for Consult: SI Discussed with referring provider: Yes Sources of Information: patient interviewed, chart reviewed and crisis/core team assessment reviewed HPI Narrative: Mr. Bella is a 27 year-old male with hx of opioid use disorder, depression who self presented to [facility] reporting increase depression, suicidal ideation in context of opioid use which is affecting his relationship with mother of his daughter. Utox positive for fentanyl and cannabinoid. Pt presents as calm and pleasant. Pt reports he was buying percocet from a friend who was prescribed this medication. He reports friend did not get any more. He bought them them on the streets and it appears that it had fentanyl on it. He almost had accidental OD. He reports feeling very scared about it. He reports that he disclosed to his partner use of opioid medications. He reported partner was more supportive than he initially thought. He denies any plan or intent to harm himself now. However, he reports multiple psychosocial stressors including mother recently dx with cancer, past trauma. Pt reports he fears losing his daughter and partner if addiction gets worse. He met with addiction medicine provider, Sarah Goldberg. He reports he is contemplating starting suboxone but worried that he may be changing one drug for another. Pt provided education about MAT. Past Psychiatric History: Inpt: none OP: none Medical Evaluation Reviewed: Yes PENDING SALE TO [facility] Medical History No pertinent past medical history Diagnostics Vital Signs (24Hr): Vital Signs - 24 hr 05/14/23 20:30 05/15/23 06:34 Temperature 98.4 F 98.2 F Pulse Rate 61 62 Respiratory Rate 18 17 Blood Pressure 102/64 104/63 Pulse Oximetry 99 100 Oxygen Delivery Method Room Air Room Air BMI result Body Mass Index 21.4 Labs 05/13/23 22:42 05/13/23 22:42 Labs: Laboratory Results - last 48 hr 05/13/23 05/13/23 05/15/23 22:42 23:06 08:34 WBC 7.1 RBC 4.46 L Hgb 13.8 L Hct 39.0 L MCV 87.4 MCH 30.9 MCHC 35.4 RDW 13.2 Plt Count 177 MPV 10.0 Immature Gran % (Auto) 0.3 Neut % (Auto) 75.4 H Lymph % (Auto) 11.0 L [place] % (Auto) 12.5 H Eos % (Auto) 0.1 Baso % (Auto) 0.7 Lymph # (Auto) 0.8 L [place] # (Auto) 0.9 Eos # (Auto) 0.0 Baso # (Auto) 0.1 Abs Immat Gran (auto) 0.02 Absolute Neuts (auto) 5.3 Absolute Nucleated RBC 0.000 Nucleated RBC % (auto) 0.0 Sodium 138 Potassium 3.5 Chloride 103 Carbon Dioxide 27 Anion Gap 12 BUN 12 Creatinine 1.01 Estim Creat Clear Calc 106.0 Estimated GFR > 60 Random Glucose 117 H Calcium 9.6 Total Bilirubin 0.4 AST 16 ALT 19 Alkaline Phosphatase 65 Total Protein 7.5 Albumin 4.5 Urine Color Yellow Urine Appearance Clear Urine pH 6.0 Ur Specific [place] 1.020 Urine Protein Trace Urine Glucose (UA) Negative Urine Ketones Trace Urine Blood Moderate (2+) H Urine Nitrite Negative Ur Leukocyte Esterase Negative Urine RBC >20 H Urine WBC 0-5 Ur Squamous Epith Cells 0-2 Urine Bacteria None Seen Hyaline Casts 0-2 Urine Opiates Screen Not Detected Urine Fentanyl Screen POSITIVE H Ur Barbiturates Screen Not Detected Ur Phencyclidine Scrn Not Detected Ur Amphetamines Screen Not Detected U Benzodiazepines Scrn Not Detected Urine Cocaine Screen Not Detected U Marijuana (THC) Screen POSITIVE H Ethyl Alcohol < 10 COVID-19 (RADHA) Negative COVID-19 Clin Com See Note Influenza Type A (ADITYA) Positive A Influenza Type B (ADITYA) Negative Influenza A & B Note See Note Mental Status Exam Mental Status Exam Narrative: Appearance:wearing hospital gown, fair hygiene, in NAD behavior: cooperative Psychomotor:no agitation or retardation noted Speech:clear, normal rate/rhythm/volume, spontaneous TP:linear TC:future oriented, hopeful Mood: better Affect:congruent, brightens up at times SI:denies HI:denies VH/AH:none Delusions:none Insight/judgment:fair x 2. memory/cog: alert, oriented x 3. grossly intact to conversational testing. Medications Medications Current Medications Clonidine HCl (Clonidine Hcl 0.1 Mg Tablet) 0.1 mg PO BEDTIME CHRISTIANA; Protocol Last Admin: 05/14/23 20:51 Dose: 0.1 mg Cyclobenzaprine HCl (Cyclobenzaprine Hcl 10 Mg Tablet) 10 mg PO TID PRN PRN Reason: Restlessness Allergies Allergies Allergy/AdvReac Type Severity Reaction Status Date / Time alprazolam [From Xanax] Allergy Rash Verified 05/13/23 22:29 Assessment & Plan Assessment & Plan (1) MDD (major depressive disorder), recurrent episode, moderate: Status: Acute Code(s): F33.1 - Major depressive disorder, recurrent, moderate (2) Opioid use disorder, mild, abuse: Status: Acute Code(s): F11.10 - Opioid abuse, uncomplicated Plan Mr. Bella is a 27 year-old male with hx of opioid use disorder. It appears he recently relapsed on percocet. He bought some pills on the streets that were laced with fentanyl and had accidental OD. He disclosed to his partner and mother of his 2 young children his relapsed. This has caused some tension between them but he also reports she is being supportive. He had initially reported SI. However, he now presents as very future oriented, accepting help. He reports hc of trauma as well would like to be connected to services for both addiction and mental health treatment. PLAN 1. He may be able to follow up with OP services, given that there is no imminent harm to self or others. Although this may take time. Give narcan on discharge. Total time managing care of this patient today ____ minutes.
--- NOTE | 2023-05-15 16:13 | MHC.CARE ---
RAD team conducted a [place] bed[place]. [facility]. RAD team to f/u with facilities to see outcome
[2023-05-15 17:09] VITALS: BP 108/71; PULSE 82; RESP 18; TEMP 37.8; O2SAT 98
[2023-05-15] MEDS: Acetaminophen 325 MG TABLET 975 MG PO (17:42)
--- NOTE | 2023-05-15 17:45 | PC.NURSE ---
pt medicated per mar with PRN tylenol for 100.0 oral fever and body aches. pt girlfriend at bedside visiting with pt. pt appears to be in no apparent distress. rr even/unlabored. pt is calm and cooperative beba. plan of care ongoing.
[2023-05-15] MEDS: cloNIDine HCL 0.1 MG TABLET PO (21:28)
[2023-05-15] MEDS: diphenhydrAMINE HCL 25 MG CAPSULE 50 MG PO (21:28)
[2023-05-16] MEDS: Cyclobenzaprine HCl 10 MG TABLET PO (03:08)
[2023-05-16 06:45] VITALS: BP 119/70; PULSE 59; RESP 18; TEMP 36.9; O2SAT 100
[2023-05-16] MEDS: Acetaminophen 325 MG TABLET 975 MG PO (12:20)
--- NOTE | 2023-05-16 15:00 | MHC.CARE ---
RAD Team conducted a statewide bed search for this individual, however, there were no available beds. This search will continue tomorrow if deemed appropriate.
--- NOTE | 2023-05-16 15:44 | MHC.RECOVRN ---
Met with pt in [facility] to follow up after meeting with Sarah Goldberg yesterday and discussing MOUD. Pt sitting in bed, awake, alert, easily engages in conversation, appears comfortable. Pt reports diaphoresis and body aches. Reports aches are relieved with prn medications and seem to be decreasing with time. Pt is interested in Suboxone, would like to speak with MQ further regarding dosing. Pt denies other questions or concerns for t/w. Discussed with Sarah Goldberg APRN.
--- NOTE | 2023-05-16 16:25 | P.PNADD_ITS ---
Subjective Subjective Date of Service: 05/17/23 Reason For Visit: SI Interim History: Patient seen in follow up by feltmaker and weigher and this principal technical writer. Patient reports he reviewed the information provided to him about OUD and medications for OUD He asked about dosing, side effects--specifically oral health. Questions answered, stressed importance of oral health. Reinforced more common side effects including constipation. Discussed therapeutic dosing--patient inquiring if dose directly related to amt of substance used, this principal technical writer confirmed this, however also more related to symptom management (withdrawal) and management of cravings/thoughts of using pills. Patient verbalized understanding, and states he wished to move forward with initiating buprenorphine. Review of Systems Acute medical concerns: No Medical Review of Systems: unchanged Mental Status Exam Mental Status Exam Patient Appearance: Appropriate Level of Consciousness: Awake and Appropriate Patient Behavior: Appropriate Mood Description: Calm Affect Description: Anxious Speech Pattern: Clear Diagnostics Vital Signs (24Hr): Vital Signs - 24 hr 05/15/23 17:09 05/16/23 06:45 Temperature 100.0 F 98.5 F Pulse Rate 82 59 Respiratory Rate 18 18 Blood Pressure 108/71 119/70 Pulse Oximetry 98 100 Oxygen Delivery Method Room Air Room Air BMI result Body Mass Index 21.4 Labs 05/13/23 22:42 05/13/23 22:42 Labs: Laboratory Results - last 48 hr 05/15/23 08:34 COVID-19 (RADHA) Negative COVID-19 Clin Com See Note Influenza Type A (ADITYA) Positive A Influenza Type B (ADITYA) Negative Influenza A & B Note See Note Medications Medications Current Medications Acetaminophen (Acetaminophen 325 Mg Tablet) 975 mg PO RQ6H PRN PRN Reason: Fever Last Admin: 05/16/23 12:20 Dose: 975 mg Buprenorphine/Naloxone (Buprenorphine/Naloxone 2/0.5mg Film) 0.5 film SUBLINGUAL BID CHRISTIANA Clonidine HCl (Clonidine Hcl 0.1 Mg Tablet) 0.1 mg PO BEDTIME CHRISTIANA; Protocol Last Admin: 05/15/23 21:28 Dose: 0.1 mg Cyclobenzaprine HCl (Cyclobenzaprine Hcl 10 Mg Tablet) 10 mg PO TID PRN PRN Reason: Restlessness Last Admin: 05/16/23 03:08 Dose: 10 mg Allergies Allergies Allergy/AdvReac Type Severity Reaction Status Date / Time alprazolam [From Xanax] Allergy Rash Verified 05/13/23 22:29 Assessment & Plan Assessment & Plan (1) Opioid use disorder, mild, abuse: Status: Acute Code(s): F11.10 - Opioid abuse, uncomplicated Assessment and Plan: * start suboxone 1mg BID (0.5 of 2mg film) * discussed how medication should be taken as patient has never taking this before. * advised patient that he could decline second 1mg dose if he wanted to--some apprehension and expected anxiety with starting medication * discussed with RN * will follow up in AM Total time managing care of this patient today _20___ minutes.
[2023-05-16 16:39] VITALS: BP 100/60; PULSE 66; TEMP 37.2; O2SAT 99
[2023-05-16] MEDS: Buprenorphine/Naloxone 2/0.5mg FILM 0.5 FILM SUBLINGUAL (16:45)
--- NOTE | 2023-05-16 16:55 | PC.NURSE ---
Sarah Goldberg was notified of pt blood pressure and pulse 100/60 66, before suboxone started. will continue to monitor.
[2023-05-16 17:55] VITALS: BP 117/74; PULSE 76; O2SAT 98
--- NOTE | 2023-05-16 19:43 | PC.NURSE ---
Addendum entered by Vielka Cannon 05/16/23 20:26: Pt requesting to leave. Spoke to Lisa from care team who will look into section status. Lisa at bedside speaking to Pt and family member. Pt voluntary. Plan for D/C. Original Note: Assumed care of this Pt at 1900. Pt in room with visitor, food brought in by family.
[2023-05-16] MEDS: cloNIDine HCL 0.1 MG TABLET PO (21:11)
== END 2023-05-16 21:57 | disposition home or self-care (01) ==
PROVIDERS: Emergency Medicine; Emergency Provider Emergency Medicine Emergency Medical Services
DX: R45.851 Suicidal ideations (principal); F32.A Depression, unspecified; F19.10 Other psychoactive substance abuse, uncomplicated
CPT/HCPCS: 36415; 80053; 80307; 81001; 85025; 87502; 87635; 99285; S9485

== ENCOUNTER → 2023-05-13 23:11 | Outpatient (BNV) | payer OTHER, SELFPAY | PROVIDERS: Emergency Provider Emergency Medicine; Visit Provider Nurse Practitioner Psychiatric/Mental Health | DX: F33.1 Major depressive disorder, recurrent, moderate (principal); F11.10 Opioid abuse, uncomplicated | CPT/HCPCS: 99232; 99284; 99285 ==

== ENCOUNTER 2023-05-17 14:42 | Outpatient (AMB) | payer OTHER, SELFPAY ==
--- NOTE | 2023-05-17 14:44 | A.OFFVISCC_ITS ---
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 Required: No Allergies alprazolam [From Xanax] Allergy (Verified 05/13/23 22:29) Rash Do you need a note to return to daycare/school/sports/work: No HPI Intake HPI Details Patient presents to establish care Referred from ACS/Emergency dept PCP is through [facility], pt unsure of PCP name Lives at home with girlfriend and 2 daughts (5 & 2 yo) Family and baptism is his support system Reports he went to baptism this morning and has found hope and peace through accepting Smooth into his heart Was taking percocets purchased from the [employer] x 1year He was taking one a day at night for sleep Last use was 5 days ago He is denying any withdrawal symptoms, reports he was mildly diaphoretic (no diaphoresis noted however at this time) earlier He denies cravings Reports he has recently quit smoking cigarrettes and marijuana No use or hx of use of needles Has no providers Interested in referral Hx of: depression, anxiety, PTSD, SI He is uninterested in suboxone at this time, t/w explained risks vs benefits of detoxing from opiates with no MAT Narcan offered- he reports he has at home He endorses poor sleep most nights and this was his driving factor of taking the pills [facility] Medical History No pertinent past medical history Social History Patient Tobacco Use Status: Current everyday Tobacco user Substance Use Type: Opiates and Painkillers Review of Systems Const Reports as per HPI Physical Exam Vital Signs: Last Vital Signs Pulse 84 05/17/23 14:51 BP 110/70 05/17/23 14:51 Pulse Ox 99 05/17/23 14:51 Oxygen Delivery Method Room Air 05/17/23 14:51 Const General: cooperative and healthy appearing; No diaphoretic or ill appearing Resp Effort & Inspection: normal respiratory effort Psych Appearance: grossly normal Mental Status: mental status grossly normal Speech and movement: Normal speech and movement present Affect: normal affect Attitude: cooperative Thought content: suicidality and no homicidality Results AMB 14 Panel Urine Drug Screen Urine Marijuana (THC) Positive Last Edit by Betty Lamb CMA on 05/17/23 15:02 Urine Cocaine Negative Last Edit by Betty Lamb CMA on 05/17/23 15:02 Urine Morphine Negative Last Edit by Betty Lamb CMA on 05/17/23 15:02 Urine Methamphetamine Negative Last Edit by Betty Lamb CMA on 05/17/23 15:02 Urine Amphetamine Negative Last Edit by Betty Lamb CMA on 05/17/23 15:0 2 Urine Benzodiazepine Negative Last Edit by Betty Lamb CMA on 05/17/23 15:02 Urine Barbiturates Negative Last Edit by Betty Lamb CMA on 05/17/23 15: 02 Urine Methadone Negative Last Edit by Betty Lamb CMA on 05/17/23 15:02 Urine Buprenorphine Positive Last Edit by Betty Lamb CMA on 05/17/23 15 :02 Urine Tricyclic Antidepressant Positive Last Edit by Betty Lamb CMA on 05/17/23 15:02 Urine MDMA Negative Last Edit by Betty Lamb CMA on 05/17/23 15:02 Urine Oxycodone Negative Last Edit by Betty Lamb CMA on 05/17/23 15:02 Urine Phencyclidine Negative Last Edit by Betty Lamb CMA on 05/17/23 15 :02 Urine Propoxyphene Negative Last Edit by Betty Lamb CMA on 05/17/23 15: 02 Results Reviewed Results Reviewed: Laboratory Last Values POC Urine Buprenorphine Positive 05/17/23 15:00 POC Urine Morphine Negative 05/17/23 15:00 POC Urine Oxycodone Negative 05/17/23 15:00 POC Urine Methadone Negative 05/17/23 15:00 POC Urine Propoxyphene Negative 05/17/23 15:00 POC Urine Barbiturates Negative 05/17/23 15:00 POC U Tricyclic Antidpr Positive 05/17/23 15:00 POC Urine PCP Negative 05/17/23 15:00 POC Ur Amphetamines Negative 05/17/23 15:00 POC Ur Methamphetamine Negative 05/17/23 15:00 POC Urine MDMA Negative 05/17/23 15:00 POC Ur Benzodiazepine Negative 05/17/23 15:00 POC Urine Cocaine Negative 05/17/23 15:00 POC Ur Marijuana (THC) Positive 05/17/23 15:00 Assessment & Plan Assessment & Plan (1) Opioid use disorder, mild, abuse: Code(s): F11.10 - Opioid abuse, uncomplicated Plan: -Discussed MAT, provided med education/risks and benefits to not initiating MAT tx -Referral for manager disaster recovery -Referral placed for counseling -Start mirtazapine 7.5mg q HS -med education provided -Folow up 2 weeks Orders: Orders AMB 14 Panel Urine Drug Screen 05/17/23 Z51.81 - Encounter for therapeutic drug level monitoring Referrals Counseling Referral F11.10 - Opioid abuse, uncomplicated Medications: New mirtazapine 7.5 mg PO BEDTIME 14 tabs 0RF Coding Level of Care Code New Pt Level 4 (31955) Diagnoses Opioid use disorder, mild, abuse F11.10
[2023-05-17 14:51] VITALS: BP 110/70; PULSE 84; O2SAT 99
== END 2023-05-17 15:18 | disposition home or self-care (01) ==
PROVIDERS: Visit Provider Nurse Practitioner Family
DX: F11.10 Opioid abuse, uncomplicated (principal)
CPT/HCPCS: 99204

== ENCOUNTER → 2023-05-17 14:42 | Outpatient (BNVA) | payer OTHER, SELFPAY | PROVIDERS: Visit Provider Nurse Practitioner Family | DX: F11.10 Opioid abuse, uncomplicated (principal); Z51.81 Encounter for therapeutic drug level monitoring | CPT/HCPCS: 80305; 99202 ==

== ENCOUNTER 2023-06-20 23:19 | Emergency (ER) | payer OTHER, SELFPAY ==
[2023-06-20 23:32] VITALS: BP 111/74; PULSE 74; RESP 16; TEMP 36.8; O2SAT 98; BMI 23.8
[2023-06-20 23:53] LABS: MANUAL DIFF FLAG NO
[2023-06-20 23:56] LABS: Basophils Absolute Auto 0.1 X10*3/uL (0.0-0.2); Basophils Percent Auto 0.6 % (0-2); Eosinophils Absolute Auto 0.4 X10*3/uL (0.0-0.4); Eosinophils Percent Auto 3.9 % (0-4); Hematocrit 41.3 % (42.0-52.0); Hemoglobin 14.3 g/dl (14.0-18.0); Imm Gran Abs Auto 0.05 X10*3/uL (0.00-0.03); Imm Gran Pct Auto 0.5 % (0.0-0.4); Lymphocytes Absolute Auto 4.8 X10*3/uL (1.2-4.9); Lymphocytes Percent Auto 44.4 % (20-40); Mean Corpuscular HGB Conc 34.6 g/dl (31.0-36.0); Mean Corpuscular Volume 89.6 fL (80.0-98.0); Mean Platelet Volume 9.9 fL (9.4-12.4); Monocytes Absolute Auto 0.7 X10*3/uL (0.1-1.2); Monocytes Percent Auto 6.7 % (2-11); Neutrophils Absolute Auto 4.8 x10*3/uL (2.0-8.3); Neutrophils Percent Auto 43.9 % (45-73); Platelet Count 242 X10*3/uL (160-400); Red Blood Count 4.61 X10*6/uL (4.60-5.80); Red Cell Distribution Width 13.8 % (11.0-16.0); White Blood Count 10.9 X10*3/uL (4.8-10.8)
[2023-06-21 00:09] LABS: Alanine Aminotransferase 68 U/L (0-40); Albumin Level 4.5 g/dL (3.5-5.0); Alkaline Phosphatase 81 U/L (39-117); Anion Gap 12 (12-20); Aspartate Amino Transferase 31 U/L (5-37); Bilirubin Total 0.4 mg/dL (0.0-1.0); Blood Urea Nitrogen 16 mg/dL (9-16); Calcium 9.9 mg/dL (8.4-10.2); Carbon Dioxide 27 mmol/L (22-29); Chloride 104 mmol/L (96-108); Creatinine Clr Calc Pharmacy 119.7; Estimated Glomerular Filt Rate > 60; Glucose Random 102 mg/dL (60-115); Sodium 139 mmol/L (135-145); Total Protein 7.9 g/dL (6.5-8.0)
[2023-06-21 00:11] LABS: COVID-19 Test Negative (Negative); IDNOW Serial# 08D9AD1C; IDNOW Serial# 152EDE1D; Influenza A Negative (Negative); Influenza B2 Negative (Negative)
== END 2023-06-21 05:15 | disposition left against medical advice (07) ==
PROVIDERS: Emergency Provider Emergency Medicine
DX: R10.9 Unspecified abdominal pain (principal); Z79.899 Other long term (current) drug therapy; Z11.52 Encounter for screening for COVID-19
CPT/HCPCS: 36415; 80053; 85025; 87502; 87635; 99281; 99283

== ENCOUNTER 2023-11-24 22:43 | Emergency (ER) | payer OTHER, SELFPAY ==
--- NOTE | ~2023-11-24 | XR_ITS ---
EXAMINATION: 1. Left ankle. 2. Left foot. CLINICAL INFORMATION: Injury. COMPARISON: None. TECHNIQUE: 1. Left ankle. 3 views 2. Left foot. 3 views. FINDINGS: 1. Left ankle. No fracture. No dislocation. Ankle mortise congruent. 2. Left foot. No fracture. No dislocation. Joint spaces are normal. No soft tissue abnormality. XR/XR ankle LT min 3V IMPRESSION: 1. Normal left ankle. 2. Normal left foot. Electronically signed by: Ishmael Artis MD 11/24/2023 11:30 PM EDT
--- NOTE | ~2023-11-24 | XR_ITS ---
EXAMINATION: 1. Left ankle. 2. Left foot. CLINICAL INFORMATION: Injury. COMPARISON: None. TECHNIQUE: 1. Left ankle. 3 views 2. Left foot. 3 views. FINDINGS: 1. Left ankle. No fracture. No dislocation. Ankle mortise congruent. 2. Left foot. No fracture. No dislocation. Joint spaces are normal. No soft tissue abnormality. XR/XR foot LT min 3V IMPRESSION: 1. Normal left ankle. 2. Normal left foot. Electronically signed by: Ishmael Artis MD 11/24/2023 11:30 PM EDT
[2023-11-24 23:02] VITALS: BP 135/81; PULSE 66; RESP 18; TEMP 37.2; O2SAT 99; BMI 27.2
[2023-11-25 00:20] VITALS: BP 127/67; PULSE 66; RESP 16; TEMP 37.3; O2SAT 98
--- NOTE | 2023-11-25 00:20 | ED_ITS ---
HPI - General Adult General Chief complaint: Extremity Injury, Lower Stated complaint: L ankle Pain Time Seen by Provider: 11/24/23 23:53 Source: patient, RN notes reviewed and old records reviewed Mode of arrival: ambulatory Limitations: no limitations History of Present Illness ED Provider: Hugo DENNIS narrative: 28-year-old male presents for evaluation of left ankle pain. 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 He reports he was walking up the steps and tripped at a customer's house. He rolled his left ankle He reports 9/10 pain to the inside a left ankle and. He did not fall or hit his head He is ambulatory with a limp to the left side No other complaints or concerns extends Related Data Home Medications ?Medication ?Instructions ?Recorded ?Confirmed clonidine HCl 0.1 mg tablet 0.1 mg PO BEDTIME 05/14/23 05/14/23 Previous Rx's ?Medication ?Instructions ?Recorded ondansetron 4 mg disintegrating 4 mg PO Q8H PRN nausea and 02/17/23 tablet vomiting #20 tabs prednisone 20 mg tablet 40 mg (2 x 20 mg) PO DAILY 5 days 02/17/23 #10 tabs oseltamivir 75 mg capsule 75 mg PO BID 5 days #10 caps 05/13/23 mirtazapine 7.5 mg tablet 7.5 mg PO BEDTIME #14 tabs 05/29/23 Allergies Allergy/AdvReac Type Severity Reaction Status Date / Time alprazolam [From Xanax] Allergy Rash Verified 11/24/23 23:05 Review of Systems Constitutional: Constitutional: Denies body ache(s), Denies chills and Denies headache(s) Eyes: Eyes: Denies blurry vision ENT: Denies headache(s) Musculoskeletal: Musculoskeletal: Reports arthralgias, Reports joint swelling and Reports limited range of motion Neurologic: Denies headache(s) [facility] Past Medical History Medical History No pertinent past medical history Social History Social History Patient Tobacco Use Status: Current everyday Tobacco user Substance Use Type: Opiates and Painkillers Advance Directives: No Advance Directives Information Provided: Yes Do you have a plan to hurt others: No Plan Physical Exam ED Vital Signs: Vital Signs - 24 hr 11/24/23 23:02 11/25/23 00:20 Temperature 98.9 F 99.2 F Pulse Rate 66 66 Respiratory Rate 18 16 Blood Pressure 135/81 127/67 Pulse Oximetry 99 98 Oxygen Delivery Method Room Air Room Air BMI result Body Mass Index 27.2 Const General: healthy appearing, comfortable, no acute distress, alert and awake Nutritional Appearance: well nourished Orientation/consciousness: patient oriented x3 HENMT Head: Yes normocephalic and Yes atraumatic Eyes Eyelids: Yes eyelids normal Conjunctivae: conjunctivae normal Sclerae: sclerae normal Corneas: corneas normal Pupils: Equal, round and reactive pupils present EOM: EOMs intact bilaterally Neck Neck: Yes full ROM Resp Effort & Inspection: normal respiratory effort, able to speak in complete sentences and not labored Skin General skin exam: elasticity normal Neuro General: patient oriented x3 Cranial nerves: Yes Equal, round and reactive pupils present and Yes Bilaterally intact EOM present Cognition (Neuro): normal cognition Extrem Other: There was no significant edema to the left foot or ankle. The patient is tender to the medial aspect of the left ankle. The tenderness is inferior to the left medial malleolus. There is no calf tenderness no Achilles tenderness. Medical Decision Making Medical Decision Making MDM Narrative: 28-year-old male presents for evaluation of left ankle pain after twisting his ankle while missing a step. He has pain to the left medial aspect of the ankle. His physical exam is reassuring, there is no laxity with anterior drawer testing of the ankle. X-rays negative for fracture. The patient like this and ankle sprain. He will be discharged with symptomatic care and follow up with his PCP Differential Diagnosis Differential Diagnoses: The differential diagnosis associated with the presentation includes Ankle sprain Contusion Ankle fracture Ankle dislocation Independent Interpretation I performed an independent interpretation of an: Plain X-Ray (No obvious displaced fracture of the left ankle or foot) Radiology Impression Discussion of test interpretation with radiology: I have reviewed the radiologist's reading. (FINDINGS: 1. Left ankle. No fracture. No dislocation. A nkle mortise congruent. 2. Left foot. No fracture. No dislocation. Joint spaces are normal. No soft tissue abnormality. XR/XR foot LT min 3V IMPRESSION: 1. Normal left ankle. 2. Normal left foot.) Discharge Plan Discharge Clinical Impression: Left ankle sprain Patient Disposition: Home, Self-Care Instructions: Ankle Sprain (ED) Additional Instructions: Your x-ray did not show any fracture of your foot or ankle. Your symptoms are likely related to an ankle sprain. Use ibuprofen/Tylenol for pain. Apply ice every 4 hours for the next 2-3 days Elevate the leg above your heart while resting Prescriptions: No Action mirtazapine 7.5 mg tablet 7.5 mg PO BEDTIME Qty: 14 0RF clonidine HCl 0.1 mg tablet 0.1 mg PO BEDTIME prednisone 20 mg tablet 40 mg PO DAILY 5 Days Qty: 10 0RF ondansetron 4 mg tablet,disintegrating 4 mg PO Q8H PRN (Reason: nausea and vomiting) Qty: 20 0RF oseltamivir 75 mg capsule 75 mg PO BID 5 Days Qty: 10 0RF Stand Alone Forms: Work/School Release Print Language: Kiswahili
[2023-11-25 00:40] VITALS: BP 127/67; PULSE 66; RESP 16; TEMP 37.3; O2SAT 98
== END 2023-11-25 00:40 | disposition home or self-care (01) ==
PROVIDERS: Emergency Provider Emergency Medicine
DX: S93.402A Sprain of unspecified ligament of left ankle, initial encounter (principal); M25.572 Pain in left ankle and joints of left foot; X50.1XXA Overexertion from prolonged static or awkward postures, initial encounter; Y93.01 Activity, walking, marching and hiking; Y92.89 Other specified places as the place of occurrence of the external cause; Y99.0 Civilian activity done for income or pay; Z79.899 Other long term (current) drug therapy; F17.200 Nicotine dependence, unspecified, uncomplicated
CPT/HCPCS: 73610; 73630; 99283; 99284

== ENCOUNTER 2023-12-20 17:30 | Emergency (ER) | payer OTHER, SELFPAY ==
--- NOTE | ~2023-12-20 | XR_ITS ---
EXAMINATION: 1. Left foot. 2. Left ankle. CLINICAL INFORMATION: Trauma. Pain. COMPARISON: Left foot and left ankle November 24, 2023 TECHNIQUE: 1. Left foot. 3 views 2. Left ankle. 3 views FINDINGS: 1. Left foot. No fracture. No dislocation. Bone and joint are normal. 2. Left ankle. No fracture or dislocation. Ankle mortise congruent. Soft tissue swelling at lateral malleolus. XR/XR foot LT min 3V IMPRESSION: 1. Normal left foot. 2. Left ankle. Soft tissue swelling at lateral malleolus. No fracture or dislocation. Electronically signed by: Ishmael Artis MD 12/20/2023 08:51 PM EDT
--- NOTE | ~2023-12-20 | XR_ITS ---
EXAMINATION: 1. Left foot. 2. Left ankle. CLINICAL INFORMATION: Trauma. Pain. COMPARISON: Left foot and left ankle November 24, 2023 TECHNIQUE: 1. Left foot. 3 views 2. Left ankle. 3 views FINDINGS: 1. Left foot. No fracture. No dislocation. Bone and joint are normal. 2. Left ankle. No fracture or dislocation. Ankle mortise congruent. Soft tissue swelling at lateral malleolus. XR/XR ankle LT min 3V IMPRESSION: 1. Normal left foot. 2. Left ankle. Soft tissue swelling at lateral malleolus. No fracture or dislocation. Electronically signed by: Ishmael Artis MD 12/20/2023 08:51 PM EDT
[2023-12-20 17:46] VITALS: BP 152/87; PULSE 100; RESP 19; TEMP 36.6; O2SAT 99; BMI 28.7
--- NOTE | 2023-12-20 17:50 | ED.LOWEXIN ---
HPI - Extremity Injury (Lower) General Chief Complaint: Extremity Injury, Lower Stated Complaint: L ankle inj Time Seen by Provider: 12/20/23 20:55 Source: patient and RN notes reviewed Mode of arrival: ambulatory Limitations: no limitations History of Present Illness ED Provider: Tanisha Barrera PA-C HPI Narrative: This is a 28-year-old male who presents emergency department with complaints of left ankle pain since today. 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 He states that he inverted his ankle. He immediately had pain in his left ankle and could not bear weight for 3-5 minutes. 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 He states that he has previously sprain his ankle in the past however states that it has never been this severe. He states that he has been unable to fully bear weight on his left ankle. Denies taking any medications at home prior to his arrival. He denies hitting his head or LOC. Denies any other complaints or concerns at this time. MD complaint: foot injury and fall Onset (ago): hour(s) Type of Injury: inversion Severity: moderate Relieving factors: nothing Exacerbating factors: weight bearing, movement and palpation Context: fall Associated symptoms: swelling and able to partially bear weight Related Data Home Medications ?Medication ?Instructions ?Recorded ?Confirmed clonidine HCl 0.1 mg tablet 0.1 mg PO BEDTIME 05/14/23 05/14/23 Previous Rx's ?Medication ?Instructions ?Recorded ondansetron 4 mg disintegrating 4 mg PO Q8H PRN nausea and 02/17/23 tablet vomiting #20 tabs prednisone 20 mg tablet 40 mg (2 x 20 mg) PO DAILY 5 days 02/17/23 #10 tabs oseltamivir 75 mg capsule 75 mg PO BID 5 days #10 caps 05/13/23 mirtazapine 7.5 mg tablet 7.5 mg PO BEDTIME #14 tabs 05/29/23 acetaminophen 500 mg tablet 1,000 mg (2 x 500 mg) PO Q8H PRN 12/20/23 (Tylenol Extra Strength) pain #30 tabs ibuprofen 600 mg tablet 600 mg PO Q6H PRN pain #30 tabs 12/20/23 Allergies Allergy/AdvReac Type Severity Reaction Status Date / Time alprazolam [From Xanax] Allergy Rash Verified 12/20/23 17:49 Review of Systems Review of Systems: Yes all other systems are reviewed and are negative Constitutional: Constitutional: Reports as per [facility] Past Medical History Attestation statement: The following information was validated with the patient. Medical History No pertinent past medical history Social History Social History Patient Tobacco Use Status: Current everyday Tobacco user Substance Use Type: Opiates and Painkillers Advance Directives: No Advance Directives Information Provided: No Do you have a plan to hurt others: No Plan Physical Exam Vital Signs: Vital Signs: Last Vital Signs Temp 98 F 12/20/23 17:46 Pulse 100 12/20/23 17:46 Resp 19 12/20/23 17:46 BP 152/87 H 12/20/23 17:46 Pulse Ox 99 12/20/23 17:46 O2 Del Method Room Air 12/20/23 17:46 BMI result Body Mass Index 28.7 Const: General: cooperative, comfortable and no acute distress Orientation/consciousness: patient oriented x3 Limitations: no limitations HEENT: Head: Yes normal to inspection, Yes normocephalic and Yes atraumatic Ears: hearing grossly normal bilaterally General nose exam: Normal external nose present Face and sinus: Yes normal facial exam Mouth: Normal oral and palatal mucosa present, oropharynx normal and moist mucous membranes Throat: Yes posterior oropharynx normal Eyes: General: appearance normal, both eyes and all related structures Eyelids: Yes eyelids normal Conjunctivae: conjunctivae normal Sclerae: sclerae normal Pupils: Equal, round and reactive pupils present EOM: EOMs intact bilaterally Neck: Neck: Yes normal visual inspection, Yes full ROM and Yes no lymphadenopathy Lymphatic: no lymphadenopathy noted Chest: Chest palpation & inspection: normal inspection of the chest Resp: Effort & Inspection: normal respiratory effort and able to speak in complete sentences Auscultation: clear to auscultation bilaterally, no crackles, no rales, no rhonchi and no wheezes Cardio: Rate: regular rate Rhythm: regular rhythm Heart sounds: S1 normal heart sound present and S2 normal heart sound present GI: Inspection: Yes normal to inspection Skin: General skin exam: no rashes or lesions noted Trauma: no lacerations or abrasions Wounds: no wounds Neuro: General: patient oriented x3 and moves all extremities Cranial nerves: Yes Equal, round and reactive pupils present Extrem: Other: Left ankle with moderate edema noted to the lateral malleolus with point tenderness palpation in this region. Able to dorsi and plantar flex. Strong DP pulse. No calf tenderness. No foot tenderness on examination. General: Yes normal to inspection Right upper extremity: normal to inspection Left upper extremity: normal to inspection Right lower extremity: normal to inspection Left lower extremity: normal to inspection Course Course Course Narrative: This is a Rapid Medical Examination (RME) performed by Abhishek Real PA-C in triage. Full HPI, ROS, assessment and treatment plan per primary provider in the Main ED. 28 yo male hx of mdd, opioid use disorder here for eval of left ankle/ foot pain/ swelling s/p tripping injury this morning while at work. 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 reports twisting his left ankle/ foot. admits to increased swelling to the outer aspect. was able to continue on through his shift. no otc pain meds. + noted swelling to lateral aspect of left ankle. nv intact. Plan: xr Medications Administered Discontinued Medications Generic Name Dose Route Start Last Admin Trade Name Freq PRN Reason Stop Dose Admin Acetaminophen 975 mg 12/20/23 21:54 12/20/23 22:01 Acetaminophen 325 Mg Tablet PO 12/20/23 21:55 975 mg ONCE ONE Administration Medical Decision Making Medical Decision Making [facility] Narrative: This is a 28-year-old male who presents emergency department with complaints of left ankle pain since today. On arrival patient is slightly hypertensive at 152/87, likely secondary to pain. He has tenderness palpation along the lateral malleolus. X-ray of the foot and ankle reveal no acute bony abnormalities. Discussed findings with patient. Concern for ligamentous injury, he will follow-up with the oil program compliance specialist. Given Tylenol the department. Discharged on Tylenol and ibuprofen. Given strict return precautions. He understands and agrees with plan. Patient stable for discharge. Differential Diagnosis Differential Diagnoses: The differential diagnosis associated with the presentation includes Fracture, sprain, strain, contusion Radiology Impression Discussion of test interpretation with radiology: I have reviewed the radiologist's reading. Radiologist Impression: XR/XR foot LT min 3V IMPRESSION: 1. Normal left foot. 2. Left ankle. Soft tissue swelling at lateral malleolus. No fracture or dislocation. Electronically signed by: Ishmael Artis MD 12/20/2023 08:51 PM EDT RP Dictated By: Ishmael Artis MD XR/XR ankle LT min 3V IMPRESSION: 1. Normal left foot. 2. Left ankle. Soft tissue swelling at lateral malleolus. No fracture or dislocation. Electronically signed by: Ishmael Artis MD 12/20/2023 08:51 PM EDT RP Dictated By: Ishmael Atris MD Discharge Plan Discharge Clinical Impression: Ankle sprain and strain Patient Disposition: Home, Self-Care Instructions: Ankle Sprain (ED), R.I.C.E. Treatment (ED), Ankle Strain (ED) Additional Instructions: You were seen in the emergency department due to left ankle pain. Your x-ray does not show any broken bones. Is concerning that you may have a ligamentous injury. Please rest, ice, elevate, and use Rosalio wrap. Do not weightbear on your foot and ankle until you are able to do so without pain. Alternate between ibuprofen and Tylenol as needed for pain and symptoms. Please call the oil program compliance specialist tomorrow. If any new or worsening symptoms occur including but not limited to fevers, chills, worsening pain, swelling, chest pain, shortness of breath, please seek emergent care. Prescriptions: New ibuprofen 600 mg tablet 600 mg PO Q6H PRN (Reason: pain) Qty: 30 0RF acetaminophen [Tylenol Extra Strength] 500 mg tablet 1,000 mg PO Q8H PRN (Reason: pain) Qty: 30 0RF No Action mirtazapine 7.5 mg tablet 7.5 mg PO BEDTIME Qty: 14 0RF clonidine HCl 0.1 mg tablet 0.1 mg PO BEDTIME prednisone 20 mg tablet 40 mg PO DAILY 5 Days Qty: 10 0RF ondansetron 4 mg tablet,disintegrating 4 mg PO Q8H PRN (Reason: nausea and vomiting) Qty: 20 0RF oseltamivir 75 mg capsule 75 mg PO BID 5 Days Qty: 10 0RF Referrals: [facility] [Provider Group] Stand Alone Forms: Work/School Release Print Language: Japanese
[2023-12-20] MEDS: Acetaminophen 325 MG TABLET 975 MG PO (22:01)
[2023-12-20 22:14] VITALS: BP 152/87; PULSE 100; RESP 19; TEMP 36.6; O2SAT 99
== END 2023-12-20 22:15 | disposition home or self-care (01) ==
PROVIDERS: Emergency Provider Emergency Medicine
DX: S93.402A Sprain of unspecified ligament of left ankle, initial encounter (principal); S96.912A Strain of unspecified muscle and tendon at ankle and foot level, left foot, initial encounter; X50.1XXA Overexertion from prolonged static or awkward postures, initial encounter; M25.572 Pain in left ankle and joints of left foot; Y93.89 Activity, other specified; Y92.480 Sidewalk as the place of occurrence of the external cause; Y99.0 Civilian activity done for income or pay
CPT/HCPCS: 73610; 73630; 99283

== ENCOUNTER 2024-01-11 12:50 | Outpatient (REF) | payer OTHER, SELFPAY | END 2024-01-11 12:51 | disposition home or self-care (01) | LOC: HO.HOSX 12:50 | PROVIDERS: Visit Provider Physician Assistant | DX: M79.672 Pain in left foot (principal) | CPT/HCPCS: 73630 ==

== ENCOUNTER 2024-01-11 15:12 | Outpatient (AMB) | payer OTHER, SELFPAY ==
--- NOTE | 2024-01-11 15:26 | MHC.OFFVIS ---
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 He continue to work after her sat for about 4-5 minutes, shortly he was not able to apply weight and was sent home. He presented to [facility] where x-rays were taken and crutches was given. His pain radiates up the anterior aspect of ankle. He continues to have slight swelling as well as numbness and tingling around his ankle. Finds very little to no relief with ibuprofen and Tylenol. He was given a brace from a friend however brace increased his pain. 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 The patient presented to the ED on status post an left ankle injury. 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 He reported his left ankle got twisted. He experienced immediate pain in his left ankle and was unable to bear weight for 3-5 minutes. He continued his work but experienced severe pain. He had increased edema to the outer aspect. X-rays of the left ankle were obtained in the ER. He was recommended rest, ice, elevation, and to use JULIUS wrap. He was restricted from weight bearing on the left lower extremity. He was prescribed ibuprofen 600 mg PO Q6H PRN and acetaminophen 500 mg 2 tablets PO Q8H PRN for pain and informed to alternate between the medications as needed for pain. While in the office today, the patient reports left ankle pain radiating up the anterior aspect of the left ankle. He continues to have slight edema as well as numbness and tingling sensation around his left ankle. He has tried Tylenol and ibuprofen with minimal to no relief. He tried his friend?s braces; however, that increased his pain. 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- [employer] Review of Systems Const All systems reviewed & are unremarkable except as noted in HPI and below Physical Exam Vital Signs: BMI result Body Mass Index 28.7 Const General: cooperative and no acute distress Orientation/consciousness: patient oriented x3 Resp Effort & Inspection: normal respiratory effort and able to speak in complete sentences Cardio Peripheral pulses: Peripheral pulses 2+ throughout Skin General skin exam: no rashes or lesions noted Neuro General: patient oriented x3 Extrem Other: Left ankle: Moderate edema over the lateral malleolus accompanied by tenderness to palpation. Able to perform dorsiflexion, plantar flexion, pronation and supination, but is limited due to pain. Sensation is intact. Pulse is intact. Assessment & Plan Assessment & Plan (1) Moderate left ankle sprain: Code(s): S93.402A - Sprain of unspecified ligament of left ankle, initial encounter Category: Medical Plan Mr. Bella is a 28-year-old female who presents in the office today, as a new patient, for an evaluation of a left ankle sprain. The patient presented to the ED on status post an left ankle injury. 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 He reported his left ankle got twisted. He experienced immediate pain in his left ankle and was unable to bear weight for 3-5 minutes. He continued his work but experienced severe pain. He had increased edema to the outer aspect. X-rays of the left ankle were obtained in the ER. He was recommended rest, ice, elevation, and to use JULIUS wrap. He was restricted from weight bearing on the left lower extremity. He was prescribed ibuprofen 600 mg PO Q6H PRN and acetaminophen 500 mg 2 tablets PO Q8H PRN for pain and informed to alternate between the medications as needed for pain. While in the office today, the patient reports left ankle pain radiating up the anterior aspect of the left ankle. He continues to have slight edema as well as numbness and tingling sensation around his left ankle. He has tried Tylenol and ibuprofen with minimal to no relief. He tried his friend?s braces; however, that increased his pain. The patient was provided with a tall walking boot, off the shelf. A referral was placed to physical therapy. The goal is to wean him out of the boot in the next two weeks. Follow up will be via telehealth in two weeks to discuss his progress with physical therapy. He was provided a work note stating he should remain out of work until his follow up. We may need to extend his out of work time depending on the pain and edema during the telehealth appointment. Follow-up will be in 2 weeks via telephone, or sooner if needed. X-rays of the left ankle, which were obtained while in the office today and were reviewed by me, Katya Gaytan PA-C, revealed: Negative for any acute fracture or dislocation. X-rays of the left ankle, obtained on 12/20/23, revealed: 1. Normal left foot. 2. Left ankle. Soft tissue swelling at lateral malleolus. No fracture or dislocation Orders: Orders PT Evaluation and Treatment 01/11/24 S93.402A - Sprain of unspecified ligament of left ankle, initial encounter XR foot LT min 3V 01/11/24 M79.673 - Pain in unspecified foot Patient Instructions: Scribed by Josee Thompson medical records technician, for Katya Gaytan PA-C on 01/11/24 at 4:05 pm EST. Coding Level of Care Code New Pt Level 4 (90854) Diagnoses Moderate left ankle sprain S93.402A
[2024-01-11 15:42] VITALS: BMI 28.7
== END 2024-01-11 16:06 | disposition home or self-care (01) ==
LOC: HO.HOS 15:13
PROVIDERS: Visit Provider Physician Assistant
DX: S93.402A Sprain of unspecified ligament of left ankle, initial encounter (principal)
CPT/HCPCS: 99204

== ENCOUNTER → 2024-01-11 15:12 | Outpatient (BNVA) | payer OTHER, SELFPAY | PROVIDERS: Visit Provider Physician Assistant | DX: S93.402A Sprain of unspecified ligament of left ankle, initial encounter (principal) | CPT/HCPCS: 99202 ==

== ENCOUNTER 2024-01-25 13:31 | Outpatient (AMB) | payer OTHER, SELFPAY ==
--- NOTE | 2024-01-25 13:32 | MHC.OFFVIS ---
Intake Visit Reasons: Tel- LT ankle sprain-2 week follow up Intake Note: Marcel is a 28 year old male who presents today for a follow up for his left ankle sprain, DOI 12/20/23. Patient states he has been having a sporadic shocking sensation on his left ankle. Polygraph Operator Required: No Allergies alprazolam [From Xanax] Allergy (Verified 01/25/24 13:32) Rash HPI HPI Tel- LT ankle sprain-2 week follow up: Details: 28-year-old male who presents over the telephone for a telehealth appointment today regarding a follow-up of a left ankle sprain status post a trip and fall off a 6 inch stoop. I last saw the patient in the office on 01/11/24 when he was provided with a tall walking boot and a referral was placed to physical therapy. He was provided with a work note stating to remain out of work until follow-up. While in the office today, the patient reports experiencing a sporadic shocking sensation in his left ankle. 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- [employer] Review of Systems Const All systems reviewed & are unremarkable except as noted in HPI and below Telehealth Telehealth Telehealth Platform: Telephone Location of provider rendering services: practice address Location of patient: address on file Telehealth method: voice only Patient verbally consented to treatment: Yes Patient verbally consented to billing insurance company: Yes Patient informed of any privacy concerns related to visit: Yes Minutes spent on Phone/Video with Pt.: 10 Assessment & Plan Assessment & Plan (1) Moderate left ankle sprain: Code(s): S93.402A - Sprain of unspecified ligament of left ankle, initial encounter Category: Medical Plan Mr. Bella is a 28-year-old male who presents over the telephone for a telehealth appointment today regarding a follow-up of a left ankle sprain status post a trip and fall off a 6 inch stoop. I last saw the patient in the office on 01/11/24 when he was provided with a tall walking boot and a referral was placed to physical therapy. He was provided with a work note stating to remain out of work until follow-up. While in the office today, the patient reports experiencing a sporadic shocking sensation in his left ankle. The patient will discontinue the boot at this time. He will be provided with a lace up ankle brace, off the shelf and he will come to the office to flower buncher or picker the ankle brace tomorrow. He would like to return to work. Therefore, He will also be provided with a work note tomorrow stating to return to work full-time, regular duty. He would like to return to work full-time, regular duty. He mentions that physical therapy has reached out to him to schedule an appointment. Follow-up will be PRN, or sooner if needed. Duration of telephone visit- 10 minutes. Patient Instructions: Scribed by Josee Thompson, director of medical education, for Katya Gaytan PA-C on 01/25/24 at 2:07 pm EST. Coding Level of Care Code Tele Est Pt Level 3 (75811) Diagnoses Moderate left ankle sprain S93.402A
== END 2024-01-25 13:59 | disposition home or self-care (01) ==
LOC: HO.HOS 13:31
PROVIDERS: Visit Provider Physician Assistant
DX: S93.402A Sprain of unspecified ligament of left ankle, initial encounter (principal)
CPT/HCPCS: 99213

== ENCOUNTER → 2024-01-25 13:31 | Outpatient (BNVA) | payer OTHER, SELFPAY | PROVIDERS: Visit Provider Physician Assistant ==

== ENCOUNTER 2024-01-29 09:48 | Outpatient (RCR) | payer OTHER, SELFPAY ==
--- NOTE | 2024-01-29 10:57 | MHC.PT.EP ---
[facility] [place] Office [place] [facility] [place] Office [address] Ervin Tang [address] [phone] F: [phone] F: [phone] F: [phone] F: [phone] Physical Therapy Plan of Care Date of Evaluation: 01/29/24 Date of Surgery: Diagnosis: sprain of unspecified ligament of L ankle moderate sprain Assessment: 28 y/o male referred to PT with L moderate ankle sprain. 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 He inverted ankle and felt he could not put weight though ankle initially. He went to ED and imaging done, no fx. He was given crutches. He had swelling and ecchymosis. He saw ortho on 01/10 and was given tall walking boot, which has recently been discontinued. He now has lace-up brace and RTW full-duty 2 days ago. 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 Examination shows decreased L ankle AROM, decreased L ankle strength, edema, pain, and impaired gait pattern. Recommend pt 2x/week for 4 weeks to address impairments, implement HEP, and optimize functional mobtilty. Frequency and Duration: The patient will be seen 2x/week for 4 weeks Short Term Goals: 2 weeks I with HEP Pt will improve L ankle AROM by 5* all directions to improve mobility Usp Goals: 4 weeks I wtih HEP and self management Pt will be able to ambulate > 30 minutes with pain < 3/10 Pt will improve L ankle balance to 30 seconds symmetrical with R Pt will ascend/descend stairs in step through pattern and pain < 3/10 Treatment Plan: Modalities to reduce pain, spasms and effusion. Manual therapy to restore motion and function. Therapeutic exercise to improve strength and flexibility. Neuromuscular re-education for posture and balance. Therapeutic activities to return to functional activities of daily living. Electronically signed by: Haylee Valenzuela PT Please sign and return to therapist. Thank you for your referral.
--- NOTE | 2024-02-09 08:41 | MHC.PT.DC ---
[facility] [place] Office [place] Office [place] Office [address] Ervin Tang [address] [phone] F: [phone] F: [phone] F: [phone] F: [phone] Physical Therapy Discharge Report Diagnosis: sprain of unspecified ligament of L ankle moderate sprain Date of Surgery: Date of Evaluation: 01/29/24 Date of Discharge: 02/09/24 Treatments to Date: 1 Cancellations to Date: 0 No Shows to Date: 3 Discharge Status: Visit Non-compliance Discharge Summary: Pt with 3 consecutive no show visits and is d/c d/t noncompliance with scheduling policy Electronically signed by: Haylee Valenzuela PT Please sign and return to therapist. Thank you for your referral.
== END 2024-02-09 08:41 | disposition home or self-care (01) ==
LOC: HO.PTCHIC 09:48
PROVIDERS: PCP Internal Medicine; Visit Provider Physician Assistant
DX: S93.402A Sprain of unspecified ligament of left ankle, initial encounter (principal)
CPT/HCPCS: 97110; 97161

== ENCOUNTER 2024-11-13 14:17 | Emergency (ER) | payer OTHER, SELFPAY ==
[2024-11-13 14:23] VITALS: BP 121/67; PULSE 96; RESP 18; TEMP 38.1; O2SAT 99; BMI 32.3
--- NOTE | 2024-11-13 14:28 | ED.GENADULT ---
HPI - General Adult General Chief complaint: Upper Respiratory Symptoms Stated complaint: Headache sore throat, child, nausea Time Seen by Provider: 11/13/24 15:27 Source: patient Mode of arrival: ambulatory Limitations: no limitations History of Present Illness ED Provider: DICKSON MCGEE PA-C HPI narrative: 29 year old male presents to the ED today for evaluation of chills, headache, nausea without vomiting, and cough x 2 days. Reports taking Daquil this morning. His is ill with similar symptoms at home. Related Data Previous Rx's ?Medication ?Instructions ?Recorded acetaminophen 500 mg tablet 1,000 mg (2 x 500 mg) PO Q8H PRN 12/20/23 (Tylenol Extra Strength) pain #30 tabs ibuprofen 600 mg tablet 600 mg PO Q6H PRN pain #30 tabs 12/20/23 benzocaine 15 mg-menthol 2.6 mg 1 vega mucous membrane Q2-4H PRN 11/13/24 lozenges (Cepacol Sore Throat sore throat #16 ea (benzocaine-menthol)) benzonatate 100 mg capsule 100 mg PO BID PRN cough #20 caps 11/13/24 Allergies Allergy/AdvReac Type Severity Reaction Status Date / Time alprazolam (From Xanax) Allergy Rash Verified 11/13/24 14:25 Review of Systems Review of Systems: Yes all other systems are reviewed and are negative [facility] Past Medical History Attestation statement: The following information was validated with the patient. Source: old records reviewed and nursing notes reviewed Medical History No pertinent past medical history Social History Social History Patient Tobacco Use Status: Current everyday Tobacco user e-Cigarette/Vaping Use: Currently Using Substance Use Type: Opiates and Painkillers Advance Directives: No Advance Directives Information Provided: No Do you have a plan to hurt others: No Plan Current occupation: [employer] Physical Exam ED Vital Signs: Vital Signs - 24 hr 11/13/24 14:23 11/13/24 16:13 Temperature 100.5 F H 100.9 F H Pulse Rate 96 92 Respiratory Rate 18 20 Blood Pressure 121/67 125/75 Pulse Oximetry 99 96 Oxygen Delivery Method Room Air Room Air BMI result Body Mass Index 32.3 febrile General: Well appearing, in no acute distress. Skin: Warm, dry, intact. No rashes or lesions. Head: Normocephalic, atraumatic. EENT: Hearing is intact b/l. Conjunctiva clear. PERRLA. Moist mucous membranes.? Posterior oropharynx erythematous without edema. No tonsillar exudates or masses. Uvula midline. Controlling secretions and speaking in complete sentences. Neck: Supple without LAD Cardiac: Chest wall symmetric. RRR Lungs: Normal respiratory effort without accessory muscle use. CTA bilaterally. No rales, rhonchi, or wheezes.? Abdomen: Soft, non-tender, non-distended. No rebound tenderness or guarding. Positive BS x4. Ext: Upper and lower extremities atraumatic, without tenderness, deformity, swelling or erythema. Full ROM throughout. Neuro: AOx3. Normal speech. Ambulating with steady gait. Psych: Appropriate mood and affect. Responds appropriately to questions. Course Course Course Narrative: Patient tested positive for COVID. given motrin for low grade temp 100.5F. Educated on symptomatic treatment. Patient has remained stable throughout ED visit today. Discussed worrisome signs and symptoms and when to return to the ED. All questions answered at this time. Patient is agreeable with disposition and stable for discharge. Medical Decision Making Medical Decision Making [facility] Narrative: 29 year old male presents to the ED today for evaluation of chills, headache, nausea without vomiting, and cough x 2 days. febrile to 100.5F, not hypoxic. he is well appearing and in NAD. Differential diagnosis includes viral syndrome, strep throat, headache, migraine. Less likely pneumonia, bronchitis. 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 Plan for viral and strep swabs. Differential Diagnosis Differential Diagnoses: The differential diagnosis associated with the presentation includes As above Admission/Observation Not indicated Lab Data [facility] Lab Attestation statement: I reviewed the patient's lab results. As above Labs: Lab Results 11/13/24 11/13/24 Range/Units 15:08 15:09 COVID-19 (RADHA) Positive A (Negative) COVID-19 Clin Com See Note Influenza Type A (ADITYA) Negative (Negative) Influenza Type B (ADITYA) Negative (Negative) Influenza A & B Note See Note S. pyogenes GrpA ADITYA Negative (Negative) External Record Review External record reviewed: Inpatient record Prescription Management I considered prescription management with: Pain Medication Social Determinants Patient?s care significantly limited by Social Determinants of Health including: Other Social Determinant of Health Critical Care Time Critical Care Time Critical Care Time: No Discharge Plan Discharge Clinical Impression: COVID-19 Patient Disposition: Home, Self-Care Instructions: COVID-19: Slow the Coronavirus Spread (ED) Additional Instructions: Today you tested positive for COVID-19.? Take Ibuprofen or Tylenol as needed for fevers or body aches.? Quarantine for 5 days and ensure you wear a mask. After 5 days you should wear a mask for 5 days after that.? Practice social distancing and good hand hygiene. Drink plenty of fluids. Follow-up with your primary care provider this week. Return to the emergency department with new or worsening symptoms. In case of emergency call 911 You can purchase a pulse oximeter from your local pharmacy or grocery store, and monitor your oxygen saturation if it goes below 94% you should return to the emergency department for further evaluation. Prescriptions: New Cepacol Sore Throat (mark-men) 15-2.6 mg lozenge 1 vega mucous membrane Q2-4H PRN (Reason: sore throat) Qty: 16 0RF benzonatate 100 mg capsule 100 mg PO BID PRN (Reason: cough) Qty: 20 0RF No Action ibuprofen 600 mg tablet 600 mg PO Q6H PRN (Reason: pain) Qty: 30 0RF acetaminophen [Tylenol Extra Strength] 500 mg tablet 1,000 mg PO Q8H PRN (Reason: pain) Qty: 30 0RF Referrals: Physician,None [Primary Care Provider, Medical] Stand Alone Forms: Work/School Release Interventions: ED Discharge Assessment Last Done: 11/13/24 16:13 Discharge Date/Time: 11/13/24 16:14 Print Language: Tajik
[2024-11-13 15:22] LABS: COVID-19 Test Positive (Negative); IDNOW Serial# 55D5AD1C
[2024-11-13 15:22] LABS: IDNOW Serial# 08D9AD1C; Strep A Nucleic Acid Negative (Negative)
[2024-11-13 15:30] LABS: IDNOW Serial# 58CA691E; Influenza B2 Negative (Negative)
[2024-11-13 16:13] VITALS: BP 125/75; PULSE 92; RESP 20; TEMP 38.3; O2SAT 96
== END 2024-11-13 16:14 | disposition home or self-care (01) ==
PROVIDERS: Physician Assistant Medical; Emergency Provider Emergency Medicine Emergency Medical Services
DX: U07.1 COVID-19 (principal); R05.9 Cough, unspecified; R11.0 Nausea
CPT/HCPCS: 87502; 87635; 87651; 99282; 99283